=== PATIENT | male | born 1980 | race Caucasian/White ===

== ENCOUNTER 2023-04-20 14:59 | Outpatient (AMB) | payer OTHER, SELFPAY ==
--- NOTE | 2023-04-20 15:20 | MHC.PC.OV ---
Vital Signs 04/20/23 15:21 Height 5 ft 10 in Weight 505 lb BMI 72.5 BP 140/80 H Blood Pressure Location Lt brachial Position Sitting Pulse 101 H Pulse Source Pulse Oximeter Pulse Oximetry (%) 95 Oxygen Delivery Method Room Air Intake Visit Reasons: ADMISSIONS OFFICER/HTN/Asthma/Meds Intake Note: Patient is here as a new patient, would like prescription refills, he is concerned about jock itch. Allergies Penicillins Allergy (Mild, Verified 04/20/23 15:26) Hives Tobacco use date assessed: 04/20/23 Dental Screening Dental Screen Date: 04/20/23 Did you have a dental visit in the last 12 months?: Yes Did you have a dental problem in the last 6 months where you did not have access to dental care?: No Was dental information given to patient?: Patient has dentist HPI ADMISSIONS OFFICER/HTN/Asthma/Meds HPI Details New patient Prior PCP:?Dr Thompson at [facility] in [facility] Last office visit/CPE: August for [place] & Flu. August 2021 Acute issue(s): Jock itch x2 months. Erectile dysfunction - difficulty maintaining an erection. PMHx: Morbid obesity, Hypertension, Asthma SurgHx: None FHx: Father: HTN, paranoid schizophrenia. pGF: Dementia. pGM: DM, HTN. Mother: Asthma SocHx: Nonsmoker. EtOH 1-2 in a month. No drugs. PFSH Medical History (Updated 04/20/23 @ 16:01 by En Allen) Palpitations High blood pressure Asthma Surgical History (Updated 04/20/23 @ 15:32 by Ekaterina Royal CMA) No pertinent past surgical history Family History (Updated 04/20/23 @ 15:36 by Ekaterina Royal CMA) Father High blood pressure Paranoid schizophrenia Diabetes Mother Asthma Paternal Grandfather High blood pressure Paternal Grandmother Diabetes High blood pressure (Updated 04/20/23 @ 15:39 by Ekaterina Royal CMA) Household Members: Significant Other Housing: Apartment Are you a primary floor care technician to a significant other at home: No Do you presently have visiting nurse or other home services: No 75 years or older and lives alone: No Alcohol intake: current Patient Tobacco Use Status: Never used Tobacco e-Cigarette/Vaping Use: Never Used Special esther needs: No service: No Current occupational status: employed 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 Cognitive needs: No Hearing needs: No Vision needs: Yes (Patient wears glasses) Questionnaire PHQ-9 Over the last 2 weeks, how often have you been bothered by any of the following problems? 1. Little interest or pleasure in doing things: several days 2. Feeling down, depressed, or hopeless: several days 3. Trouble falling or staying asleep, or sleeping too much: several days 4. Feeling tired or having little energy: several days 5. Poor appetite or overeating: not at all 6. Feeling bad about yourself - or that you are a failure or have let yourself or your family down: several days 7. Trouble concentrating on things, such as reading the newspaper or watching television: not at all 8. Moving or speaking so slowly that other people could have noticed. Or the opposite - being so fidgety or restless that you have been moving around a lot more than usual: not at all 9. Thoughts that you would be better off or of hurting yourself in some way: not at all Total score: 5 Depression Screening Interpretation: Negative Depression Screening Done: Yes 08279 - PHQ-9 Billing: Yes Source: Developed by Drs. Kd Jarrett, Maude Colorado, Leo Baugh and colleagues, with an educational vandana from [employer]. Thrive Questionnaire Date Thrive assessed: 04/20/23 I am a: Patient What is your living situation today?: I have a steady place to live Within the past 12 months, did the food you bought not last and you didn't have the money to get more?: Never true Within the past 12 months, did you worry whether your food would run out before you got money to buy more?: Never true Do you have trouble paying for medicines?: No Do you have trouble getting transportation to medical appointments?: No Do you have trouble paying your heating and electricity bill?: No Do you have trouble taking care of your child, family member or friend?: No Do you have trouble with day-to-day activities such as bathing, preparing meals, shopping, managing finances, etc.?: No Are you currently unemployed and looking for a job?: No Are you interested in more education?: Yes AUDIT C Alcohol Use Questionnaire (AUDIT-C) 1. How often do you have a drink containing alcohol?: Monthly or less 2. How many drinks containing alcohol do you have on a typical day when you are drinking?: 1 or 2 3. How often do you have six or more drinks on one occasion?: Never Total Score: 1 PANFILO-7 AMB Questionnaire PANFILO-7 Date PANFILO - 7 assessed: 04/20/23 Feeling nervous, anxious, or on edge: 1 = Several days Not being able to stop or control worryin = Not at all Worrying too much about different things: 1 = Several days Trouble relaxin = Not at all Being so restless that it is hard to sit still: 0 = Not at all Becoming easily annoyed or irritable: 0 = Not at all Feeling afraid as if something awful might happen: 0 = Not at all Total PANFILO-7 score (0-4 normal; 5-9 mild; 10-14 moderate; 15-21 severe): 2 Source: Developed by Drs. Kd Jarrett, Maude Colorado, Leo Baugh and colleagues, with an educational vandana from [employer]. PANFILO-7 Assessment Billing PANFILO-7 Assessment Tool: PANFILO-7 Assessment 27395 ACT Questionnaire In the past 4 weeks, how much of the time did your asthma keep you from getting as much done at work, school or at home?: None of the time During the past 4 weeks, how often have you had shortness of breath?: Not at all During the past 4 weeks, how often did your asthma symptoms wake you up at night or earlier than usual in the morning?: Not at all During the past 4 weeks, how often have you had to use your rescue inhaler or nebulizer medication?: 2-3 times a week (Patient was fighting a cold/virus) How would you rate your asthma control during the past 4 weeks?: Completely controlled ACT Interpretation: Negative Score: 23 Physical exam (Primary Care) Vital Signs: Last Vital Signs Pulse 101 H 04/20/23 15:21 BP 140/80 H 04/20/23 15:21 Pulse Ox 95 04/20/23 15:21 Oxygen Delivery Method Room Air 04/20/23 15:21 BMI result Body Mass Index 72.5 Tobacco/Smoking Status: Tobacco use Status Tobacco use date assessed 04/20/23 04/20/23 15:31 Patient Tobacco Use Status Never used Tobacco 04/20/23 15:39 e-Cigarette/Vaping Use Never Used 04/20/23 15:39 PHQ-9: PHQ-9 Score PHQ-9: Total score 5 04/20/23 15:53 Depression Screening Interpretation: Negative Thrive Assessment: Date of Thrive Assessment Date Thrive assessed 04/20/23 04/20/23 15:47 Const Nutritional Appearance: obese morbidly obese Office Procedures Pulmonary Testing Pulmonary Testing Details: 450 1 500 2 500 3 500 best All charges added?: Additional procedure code (CPT) needed Assessment and Plan Assessment & Plan (1) Morbid obesity: Code(s): E66.01 - Morbid (severe) obesity due to excess calories Plan: Patient?says?he?may?be?interested?in?a?referral?to?weight?management?or?bariatrics?but?he?would?like?to?ensure?that?his?other?comorbidities?are?better?controlled?prior?to?this. Will?readdress?at?his?next?visit (2) Jock itch: Code(s): B35.6 - Tinea cruris Plan: Avoid?excess?moisture Can?take?fluconazole?oral tab Start?clotrimazole (3) High blood pressure: Code(s): I10 - Essential (primary) hypertension Plan: Blood?pressure?is?a?little?elevated?today?but?this?is?a?new?surrounding?for?him?and?he?has?been?getting?over?a?viral?illness. Continue?current?medication?regimen Will?follow-up?at?his?next?visit?adjust?medications?if?needed (4) Asthma: Code(s): J45.909 - Unspecified asthma, uncomplicated Plan: Fair?control?of?his?symptoms?but?he?no?longer?has?an?albuterol?inhaler?and?had?QVAR?in?the?past?as?well. Will?make?these?available?for?him.??He?can?use?as?needed?or?when?he?is?sick. (5) Erectile dysfunction: Code(s): N52.9 - Male erectile dysfunction, unspecified Plan: Complaint?of?erectile?dysfunction. Possibly?due?to?decrease?testosterone?or?increased?estrogen?due?to?weight. Possibly?due?to?other?comorbidities?of?weight Check?labs?including?testosterone?level We?can?discuss?a?trial?of?sildenafil?at?an?upcoming?visit May?need?referral?to?urology (6) Laboratory exam ordered as part of routine general medical examination: Code(s): Z00.00 - Encounter for general adult medical examination without abnormal findings Plan: Check?labs Orders: Orders Complete Blood Count Auto Diff Today Z00.00 - Encounter for general adult medical examination without abnormal findings Microalbumin, Random (w Creat) Today I10 - Essential (primary) hypertension UA and rflx microscopic Today Z00.00 - Encounter for general adult medical examination without abnormal findings Magnesium Today J45.909 - Unspecified asthma, uncomplicated Testosterone, Free/Total Today N52.9 - Male erectile dysfunction, unspecified Comprehensive [place]. Panel Fast Today Z00.00 - Encounter for general adult medical examination without abnormal findings Lipid Panel Today Z00.00 - Encounter for general adult medical examination without abnormal findings Prostate Specific Antigen Scr Today Z12.5 - Encounter for screening for malignant neoplasm of prostate TSH reflex Free T4 Today Z00.00 - Encounter for general adult medical examination without abnormal findings Vitamin B12 and Folate Today E53.8 - Deficiency of other specified B group vitamins Pulmonary Test/Procedure Today J45.909 - Unspecified asthma, uncomplicated Medications: New clotrimazole 1% 1 appl topical BID 2 weeks 60 grams 2RF metoprolol succinate ER one in the Am and 1.5 at night 50 mg PO DAILY 90 tabs 2RF 90 days hydrochlorothiazide 25 mg PO DAILY 90 tabs 2RF 90 days albuterol sulfate 90 mcg/actuation (ProAir HFA) 2 puffs inhalation Q4-6H 30 days PRN 8.5 grams 0RF shortness of breath or wheezing fluconazole 150 mg PO Q3D 2 tabs 0RF 2 doses beclomethasone dipropionate 40 mcg/actuation (Qvar RediHaler) 1 inh inhalation Q12H 30 days 10.6 grams 2RF escitalopram oxalate 10 mg PO DAILY 90 tabs 2RF 90 days Coding Level of Care Code New Pt Level 4 (70023) Diagnoses Morbid obesity E66.01 Jock itch B35.6 High blood pressure I10 Asthma J45.909 Erectile dysfunction N52.9 Laboratory exam ordered as part of routine general medical examination Z00.00 Additional Codes PANFILO-7 Assessment Billing - PANFILO-7 Assessment Tool: PANFILO-7 Assessment [id number] ([id number])
[2023-04-20 15:21] VITALS: BP 140/80; PULSE 101; O2SAT 95; BMI 72.5
== END 2023-04-20 16:20 | disposition home or self-care (01) ==
PROVIDERS: PCP Family Medicine; Visit Provider Family Medicine
DX: I10 Essential (primary) hypertension (principal); E66.01 Morbid (severe) obesity due to excess calories; Z68.45 Body mass index [BMI] 70 or greater, adult; B35.6 Tinea cruris; J45.909 Unspecified asthma, uncomplicated; N52.9 Male erectile dysfunction, unspecified; Z00.00 Encounter for general adult medical examination without abnormal findings
CPT/HCPCS: 99204

== ENCOUNTER 2023-06-22 10:55 | Outpatient (REF) | payer OTHER, SELFPAY ==
[2023-06-22 14:58] LABS: MANUAL DIFF FLAG NO
[2023-06-22 15:04] LABS: Basophils Absolute Auto 0.1 X10*3/uL (0.0-0.2); Basophils Percent Auto 0.8 % (0-2); Eosinophils Absolute Auto 0.2 X10*3/uL (0.0-0.4); Eosinophils Percent Auto 1.9 % (0-4); Hematocrit 45.4 % (42.0-52.0); Hemoglobin 13.7 g/dl (14.0-18.0); Imm Gran Abs Auto 0.04 X10*3/uL (0.00-0.03); Imm Gran Pct Auto 0.4 % (0.0-0.4); Lymphocytes Absolute Auto 2.6 X10*3/uL (1.2-4.9); Lymphocytes Percent Auto 25.2 % (20-40); Mean Corpuscular HGB Conc 30.2 g/dl (31.0-36.0); Mean Corpuscular Hemoglobin 24.4 pg (27.0-33.0); Mean Corpuscular Volume 80.9 fL (80.0-98.0); Mean Platelet Volume 10.6 fL (9.4-12.4); Monocytes Absolute Auto 0.4 X10*3/uL (0.1-1.2); Monocytes Percent Auto 3.9 % (2-11); Neutrophils Percent Auto 67.8 % (45-73); Platelet Count 401 X10*3/uL (160-400); Red Blood Count 5.61 X10*6/uL (4.60-5.80); Red Cell Distribution Width 14.3 % (11.0-16.0); White Blood Count 10.4 X10*3/uL (4.8-10.8)
[2023-06-22 15:06] LABS: Appearance Urine Clear; Color Urine Yellow; Glucose Urine UA Negative (Negative); Leukocyte Esterase Urine Negative (Negative); Nitrite Urine Negative (Negative); PH 5.5 (5.0-9.0); Urine Blood Negative (Negative); Urine Ketones Negative (Negative); Urine Protein Negative (Neg-Trace)
[2023-06-22 15:40] LABS: Creatinine Urine 165.94 mg/dL; Microalbum/Creatinine Ratio Ur 7.8 ug/mg cr (<30)
[2023-06-22 15:52] LABS: Alanine Aminotransferase 7 U/L (0-40); Albumin Level 3.7 g/dL (3.5-5.0); Alkaline Phosphatase 64 U/L (39-117); Anion Gap 14 (12-20); Aspartate Amino Transferase 12 U/L (5-37); Bilirubin Total 0.4 mg/dL (0.0-1.0); Blood Urea Nitrogen 14 mg/dL (9-16); Calcium 9.1 mg/dL (8.4-10.2); Carbon Dioxide 25 mmol/L (22-29); Chloride 102 mmol/L (96-108); Cholesterol 154 mg/dL (<200); Estimated Glomerular Filt Rate > 60; Glucose Fasting 93 mg/dL (60-99); HDL Cholesterol 41 mg/dL (>40); LDL Cholesterol Calculated 96 mg/dL (<100); Magnesium 2.2 mg/dL (1.6-2.6); Potassium 4.1 mmol/L (3.3-5.1); Sodium 137 mmol/L (135-145); Total Protein 8.1 g/dL (6.5-8.0); Triglycerides 87 mg/dL (<150)
[2023-06-22 16:00] LABS: TSH reflex Free T4 2.95 uIU/mL (0.32-4.0)
[2023-06-22 16:11] LABS: Folate 5.9 ng/mL (> or = 4.0); Prostate Specific Antigen Scr 0.28 ng/mL (<0.05-4.0); Vitamin B12 576 pg/mL (200-900)
[2023-06-30 01:48] LABS: Testosterone, Free 14.8 pg/mL (35.0-155.0); Testosterone, Total 85 ng/dL (250-1100)
== END 2023-06-22 10:56 | disposition home or self-care (01) ==
LOC: HO.WFDLDS 10:55
PROVIDERS: Visit Provider Family Medicine
DX: Z00.00 Encounter for general adult medical examination without abnormal findings (principal); Z12.5 Encounter for screening for malignant neoplasm of prostate; N52.9 Male erectile dysfunction, unspecified; I10 Essential (primary) hypertension; E53.8 Deficiency of other specified B group vitamins; J45.909 Unspecified asthma, uncomplicated
CPT/HCPCS: 36415; 80053; 80061; 81003; 82043; 82570; 82607; 82746; 83735; 84153; 84402; 84403; 84443; 85025

== ENCOUNTER 2023-06-26 10:48 | Outpatient (AMB) | payer OTHER, SELFPAY ==
[2023-06-26 11:25] VITALS: BP 130/78; PULSE 82; O2SAT 99; BMI 75.3
--- NOTE | 2023-06-26 11:25 | A.OFFPC_ITS ---
Vital Signs 06/26/23 11:25 Height 5 ft 10 in Weight 525 lb BMI 75.3 BP 130/78 Blood Pressure Location Lt brachial Position Sitting Pulse 82 Pulse Source Pulse Oximeter Pulse Oximetry (%) 99 Oxygen Delivery Method Room Air Intake Visit Reasons: CPE with f/u and health maintenance Intake Note: Patient is here for physical and to follow up on labs. Patient is feeling weak from change of Metoprolol. Allergies Penicillins Allergy (Mild, Verified 06/26/23 11:26) Hives Tobacco use date assessed: 06/26/23 HPI CPE with f/u and health maintenance HPI Details 43 y/o male presents for a CPE with f/u labs and health maintenance. Labs were drawn 06/22/23. Reviewed labs with pt. Triglycerides 87. TC 154. LDL 96. HDL 41. Blood pressure today 130/78, 82p. He checks his blood pressure in the morning which is generally in the 120-130s. He is on hydrochlorothiazide 25mg, metoprolol. He reports fatigue which has been improving. He notes he did get a home test for sleep apnea before but states this had been invasive and had been unable to complete this. Pt reports GERD about 2x a week which he uses tums for. [facility] Medical History (Updated 06/26/23 @ 11:52 by En Allen) Palpitations High blood pressure Asthma Surgical History (Updated 04/20/23 @ 15:32 by Ekaterina Royal CMA) No pertinent past surgical history Family History (Updated 04/20/23 @ 15:36 by Ekaterina Royal CMA) Father High blood pressure Paranoid schizophrenia Diabetes Mother Asthma Paternal Grandfather High blood pressure Paternal Grandmother Diabetes High blood pressure Social History (Updated 04/20/23 @ 15:39 by Ekaterina Royal CMA) Household Members: Significant Other Housing: Apartment Are you a primary neonatal intensive care nurse to a significant other at home: No Do you presently have visiting nurse or other home services: No 75 years or older and lives alone: No Alcohol intake: current Comment: on occasion Patient Tobacco Use Status: Never used Tobacco e-Cigarette/Vaping Use: Never Used Special esther needs: No service: No Current occupational status: employed 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 Cognitive needs: No Hearing needs: No Vision needs: Yes (Patient wears glasses) Questionnaire Thrive Questionnaire Date Thrive assessed: 04/20/23 PANFILO-7 AMB Questionnaire PANFILO-7 Date PANFILO - 7 assessed: 04/20/23 Source: Developed by Drs. Kd Jarrett, Maude [place], Leo Baugh and colleagues, with an educational vandana from [employer]. Review of Systems Const Denies chills, Denies fatigue, Denies fever(s), Denies headache(s) and Denies weakness Eyes Denies change in vision ENT Denies dizziness, Denies headache(s), Denies hearing loss, Denies nasal congestion, Denies sinus pain, Denies sinus pressure and Denies sore throat Card Denies chest pain, Denies lightheadedness, Denies dyspnea and Denies other (palpitations) Resp Denies cough, Denies dyspnea and Denies wheezing GI Denies abdominal pain, Denies melena, Denies hematochezia, Denies change in bowel habits, Denies dyspepsia and Denies nausea Denies hematuria and Denies dysuria Musc Denies abnormal gait, Denies myalgias, Denies arthralgias, Denies numbness and Denies tingling Skin/Breast Denies rash, Denies unusual bruising and Denies wounds Neuro Denies abnormal gait, Denies dizziness, Denies headache(s), Denies memory loss, Denies numbness, Denies Sensory deficit (Neuro), Denies tingling and Denies weakness Psych Denies anxiety, Denies depression and Denies memory loss Endo Denies cold intolerance, Denies fatigue, Denies heat intolerance, Denies polydipsia and Denies polyuria Phuc/Lymph Denies easy bleeding and Denies easy bruising Aller/Immun Denies wheezing Physical exam (Primary Care) Vital Signs: Last Vital Signs Pulse 82 06/26/23 11:25 BP 130/78 06/26/23 11:25 Pulse Ox 99 06/26/23 11:25 Oxygen Delivery Method Room Air 06/26/23 11:25 BMI result Body Mass Index 75.3 Tobacco/Smoking Status: Tobacco use Status Tobacco use date assessed 06/26/23 06/26/23 11:31 Patient Tobacco Use Status Never used Tobacco 06/26/23 11:26 e-Cigarette/Vaping Use Never Used 06/26/23 11:26 Thrive Assessment: Date of Thrive Assessment Date Thrive assessed 04/20/23 06/26/23 11:26 Const General: no acute distress, well developed, alert and awake Nutritional Appearance: obese morbidly obese Orientation/consciousness: patient oriented x3 HENMT Head: Yes normocephalic and Yes atraumatic Ears: hearing grossly normal bilaterally and TM's normal bilaterally General nose exam: Normal external nose present and Normal nares present Mouth: Normal oral and palatal mucosa present and moist mucous membranes Teeth and gingiva: dentition normal Throat: Yes posterior oropharynx normal Eyes General: appearance normal, both eyes and all related structures Pupils: Equal, round and reactive pupils present and Pupil accommodation reflex normal EOM: EOMs intact bilaterally Neck Neck: Yes normal visual inspection, Yes no lymphadenopathy and Yes trachea midline Thyroid: Thyroid normal Carotids: no bruits Lymphatic: no lymphadenopathy noted Chest Chest palpation & inspection: normal inspection of the chest Resp Effort & Inspection: normal respiratory effort Auscultation: clear to auscultation bilaterally Cardio Rate: regular rate Rhythm: regular rhythm Heart sounds: S1 normal heart sound present, S2 normal heart sound present, no gallops, no murmurs and no rubs Bruits: no abdominal aortic bruits and no carotid bruits GI Palpation (GI): No Abdominal aortic bruit present, Soft to palpation, nontender, No hepatosplenomegaly present and No Rebound tenderness present Auscultation: normal bowel sounds General: Yes no CVA tenderness Back/Spine/Pelvis Back: no CVA tenderness Cervical Spine: cervical ROM normal and No Cervical spine tenderness Thoracic/Lumbar Spine: thoraco-lumbar ROM normal, No pain with thoraco-lumbar ROM, No thoracic spinal tenderness and No lumbar spinal tenderness Skin Lesions: no lesions Rashes: no rashes Trauma: no lacerations or abrasions Wounds: no wounds Nails: normal Neuro General: patient oriented x3 Cranial nerves: Yes Equal, round and reactive pupils present Cognition (Neuro): normal cognition Gait exam (Neuro): Normal gait present Motor exam (neuro): 5/5 motor strength present throughout Sensory Exam: No Sensory deficit (Neuro) Deep tendon reflexes (DTR's): Right patellar reflex intensity grade: 2+ and Left patellar reflex intensity grade: 2+ Extrem General: Yes normal to inspection and No edema Psych Appearance: grossly normal Affect: normal affect Attitude: cooperative Thought process: Normal thought process present Assessment and Plan Assessment & Plan (1) Adult general medical exam: Code(s): Z00.00 - Encounter for general adult medical examination without abnormal findings Plan: 43-year-old?male?presents?for?complete?physical?exam (2) High blood pressure: Code(s): I10 - Essential (primary) hypertension Plan: Fairly?well?controlled?blood?pressure?during?the?day?though?patient?noted diastolic?elevations?in?the?morning. These?may?be?secondary?to?sleep?apnea?and?he?is?referred?to?Sleep?Medicine Continue?current?medication?regimen Also?patient?will?continue?working?on?weight?loss?and?I?am?referring?him?to?sabrinag ht?management/bariatric (3) GERD (gastroesophageal reflux disease): Code(s): K21.9 - Gastro-esophageal reflux disease without esophagitis Plan: Patient?is?getting?symptoms?a?few?times?a?week Discussed?lifestyle?changes Will?give?him?a?script?for?omeprazole (4) Morbid obesity: Code(s): E66.01 - Morbid (severe) obesity due to excess calories Plan: Morbid?obesity?with?BMI?greater?than?75 Patient?is?interested?in?bariatric?surgery-referral?made (5) Fatigue: Code(s): R53.83 - Other fatigue Plan: Lab?work?is?unremarkable?though?testosterone?level?is?pending. Likely?sleep?apnea?and?I?have?referred?him?to?Sleep?Medicine. We?can?follow-up?on?this?at?subsequent?visit (6) Screening for prostate cancer: Code(s): Z12.5 - Encounter for screening for malignant neoplasm of prostate Plan: PSA?was?within?normal?limits (7) Sleep apnea: Code(s): G47.30 - Sleep apnea, unspecified Plan: Referred?to?Sleep?Med (8) BMI 70 and over, adult: Code(s): Z68.45 - Body mass index [BMI] 70 or greater, adult Plan: As?above,?referred?to?bariatric?surgery (9) Erectile dysfunction: Code(s): N52.9 - Male erectile dysfunction, unspecified Plan: Testosterone?level?pending We?can?follow-up?on?testosterone?levels?and?this?problem?at?his?next?visit. Can?trial?sildenafil?and?may?need?a?referral?to?urology. Orders: Referrals Sleep Medicine Referral G47.30 - Sleep apnea, unspecified Bariatric Surgery Referral E66.01 - Morbid (severe) obesity due to excess calories, Z68.45 - Body mass index [BMI] 70 or greater, adult Medications: New omeprazole 40 mg PO DAILY 30 caps 2RF 30 days Coding Level of Care Code Est Pt Level 3 (81174) Est Pt Prev Care 40-64y(07979) Diagnoses Adult general medical exam Z00.00 High blood pressure I10 GERD (gastroesophageal reflux disease) K21.9 Morbid obesity E66.01 Fatigue R53.83 Screening for prostate cancer Z12.5 Sleep apnea G47.30 BMI 70 and over, adult Z68.45 Erectile dysfunction N52.9
== END 2023-06-26 11:55 | disposition home or self-care (01) ==
PROVIDERS: PCP Family Medicine; Visit Provider Family Medicine
DX: Z00.00 Encounter for general adult medical examination without abnormal findings (principal); E66.01 Morbid (severe) obesity due to excess calories; Z68.45 Body mass index [BMI] 70 or greater, adult; I10 Essential (primary) hypertension; N52.9 Male erectile dysfunction, unspecified; K21.9 Gastro-esophageal reflux disease without esophagitis; R53.83 Other fatigue; G47.30 Sleep apnea, unspecified
CPT/HCPCS: 99213; 99396

== ENCOUNTER 2023-08-14 11:38 | Outpatient (AMB) | payer OTHER, SELFPAY ==
--- NOTE | 2023-08-14 12:04 | A.OFFPC_ITS ---
Vital Signs 08/14/23 12:09 Height 5 ft 10 in Weight 520 lb BMI 74.6 BP 118/70 Blood Pressure Location Lt brachial Position Sitting Pulse 88 Pulse Source Pulse Oximeter Pulse Oximetry (%) 99 Oxygen Delivery Method Room Air Intake Visit Reasons: f/u fatigue, sleep apnea Intake Note: Patient is here to follow up on fatigue, and sleep apnea. Allergies Penicillins Allergy (Mild, Verified 08/14/23 12:12) Hives Tobacco use date assessed: 08/14/23 Dental Screening Dental Screen Date: 08/14/23 Did you have a dental visit in the last 12 months?: Yes Did you have a dental problem in the last 6 months where you did not have access to dental care?: No Was dental information given to patient?: Patient has dentist HPI f/u fatigue, sleep apnea HPI Details 43 y/o male presents to f/u fatigue, sle ep apnea, chronic conditions. Blood pressure today 118/70. He is on HCTZ 25mg, metoprolol. Testosterone level came back significantly low. Has an appt. with urology scheduled for this. He has an appt. in September with Sleep Medicine. [facility], [facility] Medical History Palpitations High blood pressure Asthma Surgical History No pertinent past surgical history Family History Father High blood pressure Paranoid schizophrenia Diabetes Mother Asthma Paternal Grandfather High blood pressure Paternal Grandmother Diabetes High blood pressure Social History Household Members: Significant Other Housing: Apartment Are you a primary respiratory care specialist to a significant other at home: No Do you presently have visiting nurse or other home services: No 75 years or older and lives alone: No Alcohol intake: current Comment: on occasion Patient Tobacco Use Status: Never used Tobacco e-Cigarette/Vaping Use: Never Used Special esther needs: No service: No Current occupational status: employed 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 Cognitive needs: No Hearing needs: No Vision needs: Yes (Patient wears glasses) Questionnaire PHQ-9 Over the last 2 weeks, how often have you been bothered by any of the following problems? 1. Little interest or pleasure in doing things: not at all 2. Feeling down, depressed, or hopeless: several days 3. Trouble falling or staying asleep, or sleeping too much: not at all 4. Feeling tired or having little energy: not at all 5. Poor appetite or overeating: not at all 6. Feeling bad about yourself - or that you are a failure or have let yourself or your family down: several days 7. Trouble concentrating on things, such as reading the newspaper or watching television: not at all 8. Moving or speaking so slowly that other people could have noticed. Or the opposite - being so fidgety or restless that you have been moving around a lot more than usual: not at all 9. Thoughts that you would be better off or of hurting yourself in some way: not at all Total score: 2 Source: Developed by Drs. Kd Jarrett, Maude Colorado, Leo Baugh and colleagues, with an educational vandana from [employer]. Thrive Questionnaire Date Thrive assessed: 08/14/23 I am a: Patient What is your living situation today?: I have a steady place to live Within the past 12 months, did the food you bought not last and you didn't have the money to get more?: Never true Within the past 12 months, did you worry whether your food would run out before you got money to buy more?: Never true Do you have trouble paying for medicines?: No Do you have trouble getting transportation to medical appointments?: No Do you have trouble paying your heating and electricity bill?: No Do you have trouble taking care of your child, family member or friend?: No Do you have trouble with day-to-day activities such as bathing, preparing meals, shopping, managing finances, etc.?: No Are you currently unemployed and looking for a job?: No Are you interested in more education?: No THRIVE Score: 0 AUDIT C Alcohol Use Questionnaire (AUDIT-C) 1. How often do you have a drink containing alcohol?: Monthly or less 2. How many drinks containing alcohol do you have on a typical day when you are drinking?: 1 or 2 3. How often do you have six or more drinks on one occasion?: Never Total Score: 1 PANFILO-7 AMB Questionnaire PANFILO-7 Date PANFILO - 7 assessed: 08/14/23 Feeling nervous, anxious, or on edge: 0 = Not at all Not being able to stop or control worryin = Not at all Worrying too much about different things: 1 = Several days Trouble relaxin = Not at all Being so restless that it is hard to sit still: 0 = Not at all Becoming easily annoyed or irritable: 0 = Not at all Feeling afraid as if something awful might happen: 0 = Not at all Total PANFILO-7 score (0-4 normal; 5-9 mild; 10-14 moderate; 15-21 severe): 1 Source: Developed by Drs. Kd Jarrett, Maude Colorado, Leo Baugh and colleagues, with an educational vandana from [employer]. Review of Systems Const Denies chills, Denies fatigue, Denies fever(s), Denies headache(s) and Denies weakness ENT Denies dizziness and Denies headache(s) Card Denies dyspnea Resp Denies cough, Denies dyspnea, Denies wheezing and Denies other (shortness of breath) Musc Denies numbness and Denies tingling Neuro Denies dizziness, Denies headache(s), Denies numbness, Denies tingling and Denies weakness Psych Denies anxiety and Denies depression Endo Denies fatigue Aller/Immun Denies wheezing Physical exam (Primary Care) Vital Signs: Last Vital Signs Pulse 88 08/14/23 12:09 BP 118/70 08/14/23 12:09 Pulse Ox 99 08/14/23 12:09 Oxygen Delivery Method Room Air 08/14/23 12:09 BMI result Body Mass Index 74.6 Tobacco/Smoking Status: Tobacco use Status Tobacco use date assessed 08/14/23 08/14/23 12:13 Patient Tobacco Use Status Never used Tobacco 08/14/23 12:05 e-Cigarette/Vaping Use Never Used 08/14/23 12:05 PHQ-9: PHQ-9 Score PHQ-9: Total score 2 08/14/23 13:06 Thrive Assessment: Date of Thrive Assessment Date Thrive assessed 08/14/23 08/14/23 12:22 Const General: well developed; No acute distress Nutritional Appearance: obese morbidly obese Orientation/consciousness: patient oriented x3 HENIA Head: Yes normocephalic and Yes atraumatic Eyes General: appearance normal, both eyes and all related structures Pupils: Equal, round and reactive pupils present EOM: EOMs intact bilaterally Resp Effort & Inspection: normal respiratory effort Auscultation: clear to auscultation bilaterally Cardio Rate: regular rate Rhythm: regular rhythm Heart sounds: S1 normal heart sound present, S2 normal heart sound present, no gallops, no murmurs and no rubs Neuro General: patient oriented x3 and gait normal Cranial nerves: Yes Equal, round and reactive pupils present Psych Affect: normal affect Assessment and Plan Assessment & Plan (1) High blood pressure: Code(s): I10 - Essential (primary) hypertension Plan: Well?controlled.??Goal?is?less?than?140/90 Continue?current?medication (2) Hypogonadism in male: Code(s): E29.1 - Testicular hypofunction Plan: Low?testosterone?level?and?patient?notes?fatigue,?decreased?libido?and?ED He?has?an?appointment?with?Urology (3) Fatigue: Code(s): R53.83 - Other fatigue Plan: May?be?secondary?to?testosterone?levels?and?or?sleep?apnea Has?appointment?with?Urology?to?discuss?low?testosterone?levels. Has?an?appointment?with?sleep?medicine?to?evaluate?and?treat?sleep?apnea He?can?call?or?return?to?office?if?correc tion?of?the?above?is?not?solving?fatigue (4) Erectile dysfunction: Code(s): N52.9 - Male erectile dysfunction, unspecified Plan: As?above Orders: Referrals Endocrinology Referral E29.1 - Testicular hypofunction Coding Level of Care Code Est Pt Level 4 (72934) Diagnoses High blood pressure I10 Hypogonadism in male E29.1 Fatigue R53.83 Erectile dysfunction N52.9
[2023-08-14 12:09] VITALS: BP 118/70; PULSE 88; O2SAT 99; BMI 74.6
== END 2023-08-14 13:18 | disposition home or self-care (01) ==
PROVIDERS: PCP Family Medicine; Visit Provider Family Medicine
DX: I10 Essential (primary) hypertension (principal); E29.1 Testicular hypofunction; R53.83 Other fatigue; N52.9 Male erectile dysfunction, unspecified
CPT/HCPCS: 99214

== ENCOUNTER 2023-08-31 14:45 | Outpatient (AMB) | payer OTHER, SELFPAY ==
--- NOTE | 2023-08-31 15:24 | A.OFFVIS_ITS ---
Intake Visit Reasons: hypogonadism and ED Intake Note: NEW Patient presents today to established treatment for: Hypogonadism and Erectile Dysfunction Meds- None Allergies to Antibiotic- Penicillins Blood Thinner- None Market Research Lead Required: No Accompanied by: Self / Same As Patient Allergies Penicillins Allergy (Mild, Verified 08/14/23 12:12) Hives HPI Comments Details: 08/31/23--Quinton is a 43 year old male here for evaluation for hypogonadism. He complains of erectile concerns. He denies urinary symptoms. Review of labs 06/22/23--PSA - 0.28, TT-85, FT-14.8 Plan- Viagra prn, Repeat Testosterone levels PFSH Medical History Palpitations High blood pressure Asthma Surgical History No pertinent past surgical history Family History Father High blood pressure Paranoid schizophrenia Diabetes Mother Asthma Paternal Grandfather High blood pressure Paternal Grandmother Diabetes High blood pressure Social History Household Members: Significant Other Housing: Apartment Are you a primary md do resident urgent care to a significant other at home: No Do you presently have visiting nurse or other home services: No 75 years or older and lives alone: No Alcohol intake: current Comment: on occasion Patient Tobacco Use Status: Never used Tobacco e-Cigarette/Vaping Use: Never Used Special esther needs: No service: No Current occupational status: employed 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 Cognitive needs: No Hearing needs: No Vision needs: Yes (Patient wears glasses) Review of Systems Const All systems reviewed & are unremarkable except as noted in HPI and below Reports no additional complaints Eyes Reports no additional complaints ENT Reports no additional complaints Card Reports no additional complaints Resp Reports no additional complaints GI Reports no additional complaints Reports as per HPI Musc Reports no additional complaints Skin/Breast Reports system reviewed and no additional complaints, except as documented Neuro Reports no additional complaints Psych Reports no additional complaints Endo Reports no additional complaints Phuc/Lymph Reports no additional complaints Aller/Immun Reports no additional complaints Physical Exam Const General: healthy appearing, no acute distress and well developed Orientation/consciousness: patient oriented x3 HEENT Head: Yes normocephalic and Yes atraumatic Eyes Conjunctivae: conjunctivae normal Neck Neck: Yes normal visual inspection Chest Chest palpation & inspection: normal inspection of the chest Resp Effort & Inspection: normal respiratory effort Cardio Rate: regular rate GI Inspection: Yes normal to inspection Skin General skin exam: no rashes or lesions noted Neuro General: patient oriented x3 Extrem General: No pedal edema Psych Appearance: grossly normal Affect: normal affect Results AMB Urinalysis, Automated UA Leukoctes 0 Lori/uL Last Edit by [facility] on 08/31/23 15 :46 UA Nitrite Negative Last Edit by [facility] on 08/31/23 15: 46 UA Urobilinogen 0.2 mg/dL Last Edit by [facility], [facility] on 4 15:46 UA Protein 0 mg/dL Last Edit by [facility] on 08/31/23 15:46 UA pH 6.0 Last Edit by [facility] on 08/31/23 15:46 UA Blood 0 Ariel/uL Last Edit by [facility] on 08/31/23 15:46 UA Specific Filley 1.010 Last Edit by [facility] on 15:46 UA Ketone Negative Last Edit by [facility] on 08/31/23 15:4 6 UA Bilirubin 0 mg/dL Last Edit by [facility] on 08/31/23 15: 46 UA Glucose 0 mg/dL Last Edit by [facility] on 08/31/23 15:46 Results Reviewed Results Reviewed: Laboratory Last Values Urine pH (Auto) 6.0 08/31/23 15:43 Specific Filley (Auto) 1.010 08/31/23 15:43 Urine Protein (Auto) 0 mg/dL 08/31/23 15:43 Glucose (UA)(Auto) 0 mg/dL 08/31/23 15:43 Urine Ketones (Auto) Negative 08/31/23 15:43 Urine Blood (Auto) 0 Ariel/uL 08/31/23 15:43 Urine Nitrite (Auto) Negative 08/31/23 15:43 Urine Bilirubin (Auto) 0 mg/dL 08/31/23 15:43 Urine Urobilinogen (Auto) 0.2 mg/dL 08/31/23 15:43 Leukocyte Esterase (Auto) 0 Lori/uL 08/31/23 15:43 06/22/23-[address]: ORDERED: PSASCR, B12FOL Test Result Flag Reference PSA, Tot Scr 0.28 <0.05-4.0 ng/mL 06/22/23-[address]: ORDERED: Testost Fr & T Test Result Flag Reference Testost, Tot 85 L 250-1100 ng/dL For additional information, please refer to [email or web address].[email or web address]/faq/ [email or web address] (This link is being provided for informational/ educational purposes only.) This test was developed and its analytical performance characteristics have been determined by [facility] [place], [place]. It has not been cleared or approved by the U.S. Food and Drug Administration. This assay has been validated pursuant to the CLIA regulations and is used for clinical purposes. Testost, Free 14.8 L 35.0-155.0 pg/mL Assessment & Plan Assessment & Plan (1) Hypogonadism in male: Code(s): E29.1 - Testicular hypofunction Category: Medical (2) Erectile dysfunction: Code(s): N52.9 - Male erectile dysfunction, unspecified Category: Medical Plan Repeat Labs, Viagra prn Orders: Orders AMB Urinalysis Automated 08/31/23 R33.9 - Retention of urine, unspecified Medications: New sildenafil (Viagra) [id number] [facility] [id number] Member [id number] 30 minutes to 4 hours before activity 100 mg PO DAILY PRN 30 tabs 2RF sexual activity Patient Instructions: The patient had an opportunity to ask questions regarding treatment plan. The patient expressed understanding and agreement with the above treatment plan. The patient is aware they should contact our office by phone for worsening of their current condition or the appearance of new symptoms. Compliance is encouraged with any medications and followup testing that is ordered. It is a privilege to be allowed the opportunity to participate in the urologic care of your patient. If you have any questions or concerns regarding treatment for the above conditions please do not hesitate to contact me. The office telephone contact is [phone]. This note is constructed in part using voice recognition software. While every effort has been made to ensure accuracy digital project coordinator errors may have been included. Yours sincerely, Sherrie Conley MD Coding Level of Care Code New Pt Level 3 (11855) Diagnoses Hypogonadism in male E29.1 Erectile dysfunction N52.9
== END 2023-08-31 16:14 | disposition home or self-care (01) ==
PROVIDERS: PCP Family Medicine; Visit Provider Urology
DX: E29.1 Testicular hypofunction (principal); N52.9 Male erectile dysfunction, unspecified
CPT/HCPCS: 99203

== ENCOUNTER → 2023-08-31 14:45 | Outpatient (BNVA) | payer OTHER, SELFPAY | PROVIDERS: PCP Family Medicine; Visit Provider Urology | DX: E29.1 Testicular hypofunction (principal); N52.9 Male erectile dysfunction, unspecified; R33.9 Retention of urine, unspecified | CPT/HCPCS: 81003 ==

== ENCOUNTER 2023-10-13 13:50 | Outpatient (AMB) | payer OTHER, SELFPAY ==
--- NOTE | 2023-10-13 13:54 | A.OFFVIS_ITS ---
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 Did a In Home Sleep study in 2019 at [facility]. Would like rule out sleep apnea. Allergies Penicillins Allergy (Mild, Verified 10/13/23 14:03) Hives Medication List - Last Reconciled 10/13/23 by NIMESH Oneill albuterol sulfate 90 mcg/actuation (ProAir HFA) 2 puffs inhalation Q4-6H PRN 30 days escitalopram oxalate 10 mg PO DAILY 90 days fexofenadine (Cristiana Allergy) 180 mg PO DAILY hydrochlorothiazide 25 mg PO DAILY 90 days magnesium chloride 64 mg PO DAILY metoprolol succinate ER 1 tab (100mg) AM and 0.5 tabs (50mg) PM. 90 days omeprazole 40 mg PO DAILY 30 days sildenafil (Viagra) 100 mg PO DAILY PRN HPI Comments Details: 43-yr-old male presents for new in-person patient visit for sleep consultation. Pt reports his PCP has asked him to have sleep evaluated as part of his weight management work-up. Pt reports he had a HST in 2019 which was inconclusive, however pt states he did not sleep well during the study. His father had sleep apnea, his sister snores- but does not have sleep apnea. Sleep questionnaire: Have you ever been diagnosed with a sleep disorder? No Have you ever had a sleep study in the past? Yes- inconclusive Have you ever been treated for a sleep disorder? No Do you take medications for a sleep disorder? Occasionally may use CBD for sleep if neighbors are loud- as he is generally photophobic/phonophobic. Do you snore? Yes Do you wake up gasping at night? No Do you have episodes of apneas? No If yes, are they witnessed? No Do you have episodes of nocturnal chest pain or dyspnea? No Do you have difficulty initiating sleep? Not usually Do you have difficulty maintaining sleep? Not usually- but wakes up 1-2 x's per night to void. Do you wake up tired? Not always Do you have headaches upon awakening? No Do you wake up with dry mouth or throat? Sometimes Do you have GERD? Was having reflux, but better since starting prilosec. Do you have daytime tiredness or fatigue? Some. Do you have nocturnal leg cramps? No Do you have symptoms of restless legs? No Do you act out your dreams? Talks in his sleep Do you have dreams? Has had vivid dreams his whole life. No sleep sleep paralysis. Sleep hygiene questionnaire: What is your usual sleep routine? Usual bedtime is at 12-1am; Usual wake-up time is at 10am- typically 8.5-9hrs. Do you take naps? Sometimes around 6-7pm , for < 1 hr Is your sleep environment cool, dark, and quiet? Yes. Uses an eye mask. Do you exercise? States he should be doing more. Do you take caffeine or other stimulants? Coffee Lg ice coffee in am. Do you use electronics in bed? May watch phone in bed before going to bed. What is your work schedule? Works from 10pm-6pm- works from home as a [employer]. Hypersomnolence questionnaire: Do you easily fall asleep when inactive? Sometimes Have you ever had episodes of sudden weakness? None Have you ever had episodes of sudden weakness associated with strong emotions? None PFSH Medical History Palpitations High blood pressure Asthma Surgical History No pertinent past surgical history Family History Father High blood pressure Paranoid schizophrenia Diabetes Mother Asthma Paternal Grandfather High blood pressure Paternal Grandmother Diabetes High blood pressure Social History Household Members: Significant Other Housing: Apartment Are you a primary hemodialysis patient care specialist to a significant other at home: No Do you presently have visiting nurse or other home services: No 75 years or older and lives alone: No Alcohol intake: current Comment: on occasion Patient Tobacco Use Status: Never used Tobacco e-Cigarette/Vaping Use: Never Used Special esther needs: No service: No Current occupational status: employed 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 Cognitive needs: No Hearing needs: No Vision needs: Yes (Patient wears glasses) Review of Systems Const All systems reviewed & are unremarkable except as noted in HPI and below Physical Exam Vital Signs: Last Vital Signs Pulse 87 10/13/23 14:06 BP 115/70 10/13/23 14:06 Pulse Ox 97 10/13/23 14:06 Oxygen Delivery Method Room Air 10/13/23 14:06 BMI result Body Mass Index 78.2 Const General: no acute distress Orientation/consciousness: patient oriented x3 HEENT Other: Mallampati stage IV. Resp Effort & Inspection: able to speak in complete sentences Neuro General: patient oriented x3 Psych Mental Status: mental status grossly normal Speech and movement: Clear speech present Attitude: cooperative Telehealth Telehealth Location of provider rendering services: practice address Location of patient: address on file Patient Identification confirmed using: Name, : Yes Telehealth method: voice only Patient verbally consented to treatment: Yes Patient verbally consented to billing insurance company: Yes Patient informed of any privacy concerns related to visit: Yes Assessment & Plan Assessment & Plan (1) Fatigue: Code(s): R53.83 - Other fatigue Category: Medical (2) Snoring: Code(s): R06.83 - Snoring Category: Medical (3) Sleep difficulties: Code(s): G47.9 - Sleep disorder, unspecified Category: Medical (4) BMI 70 and over, adult: Code(s): Z68.45 - Body mass index [BMI] 70 or greater, adult Category: Medical Plan Pt is advised to undergo in-lab PSG w/ ET CO2 to assess for sleep apnea. Information shared on strategies to minimize noise and light sensitivity. Case discussed w/ Dr Mary Mendenhall. Orders: Orders RT PSG in-lab sleep study Today G47.9 - Sleep disorder, unspecified, R06.83 - Snoring, R53.83 - Other fatigue, Z68.45 - Body mass index [BMI] 70 or greater, adult Coding Level of Care Code New Pt Level 3 (35691) Diagnoses Fatigue R53.83 Snoring R06.83 Sleep difficulties G47.9 BMI 70 and over, adult Z68.45
[2023-10-13 14:06] VITALS: BP 115/70; PULSE 87; O2SAT 97; BMI 78.2
== END 2023-10-13 14:56 | disposition home or self-care (01) ==
PROVIDERS: PCP Family Medicine; Visit Provider Nurse Practitioner Family
DX: R53.83 Other fatigue (principal); R06.83 Snoring; G47.9 Sleep disorder, unspecified; Z68.45 Body mass index [BMI] 70 or greater, adult
CPT/HCPCS: 99203

== ENCOUNTER → 2023-10-13 13:50 | Outpatient (BNVA) | payer OTHER, SELFPAY | PROVIDERS: PCP Family Medicine; Visit Provider Nurse Practitioner Family ==

== ENCOUNTER 2023-10-28 10:54 | Outpatient (REF) | payer OTHER, SELFPAY ==
[2023-10-28 15:32] LABS: Glucose Fasting 84 mg/dL (60-99)
[2023-10-29 13:52] LABS: Prolactin 10.2 ng/mL (2.0-18.0)
[2023-11-04 15:27] LABS: Testosterone, Total 62 ng/dL (250-1100)
== END 2023-10-28 10:55 | disposition home or self-care (01) ==
LOC: HO.WFDLDS 10:54
PROVIDERS: Visit Provider Urology
DX: E29.1 Testicular hypofunction (principal)
CPT/HCPCS: 36415; 82947; 83001; 83002; 84146; 84402; 84403

== ENCOUNTER → 2023-12-04 01:20 | Outpatient (BNV) | payer OTHER, SELFPAY | PROVIDERS: Visit Provider Internal Medicine | DX: R06.83 Snoring (principal); G47.9 Sleep disorder, unspecified; R53.83 Other fatigue; Z68.45 Body mass index [BMI] 70 or greater, adult | CPT/HCPCS: 95810 ==

== ENCOUNTER → 2023-12-04 21:57 | Outpatient (REF) | payer OTHER, SELFPAY | LOC: HO.SL 21:57 | PROVIDERS: Visit Provider Nurse Practitioner Family | DX: G47.9 Sleep disorder, unspecified (principal); R53.83 Other fatigue | CPT/HCPCS: 95810 ==

== ENCOUNTER → 2024-04-08 20:30 | Outpatient (REF) | payer OTHER, SELFPAY | LOC: HO.SL 20:30 | PROVIDERS: PCP Family Medicine; Visit Provider Nurse Practitioner Family | DX: G47.30 Sleep apnea, unspecified (principal); Z68.45 Body mass index [BMI] 70 or greater, adult | CPT/HCPCS: 95811 ==

== ENCOUNTER 2024-05-03 13:53 | Outpatient (AMB) | payer OTHER, SELFPAY ==
[2024-05-03 14:21] VITALS: BP 130/84; PULSE 89; O2SAT 99; BMI 81.3
--- NOTE | 2024-05-03 14:21 | MHC.OFFVIS ---
Vital Signs 05/03/24 14:21 Height 5 ft 10 in Weight 567 lb BMI 81.3 BP 130/84 Blood Pressure Location Rt radial Position Sitting Pulse 89 Pulse Source Pulse Oximeter Pulse Oximetry (%) 99 Oxygen Delivery Method Room Air Intake Visit Reasons: 7 month F/U Human Capital Consultant Required: No Accompanied by: Self / Same As Patient Allergies Penicillins Allergy (Mild, Verified 05/03/24 14:24) Hives Medication List - Last Reconciled 05/03/24 by NIMESH Oneill albuterol sulfate 90 mcg/actuation (ProAir HFA) 2 puffs inhalation Q4-6H PRN 30 days escitalopram oxalate 10 mg PO DAILY 90 days fexofenadine (Cristiana Allergy) 180 mg PO DAILY hydrochlorothiazide 25 mg PO DAILY 90 days magnesium chloride 64 mg PO DAILY metoprolol succinate ER 1 tab (100mg) AM and 0.5 tabs (50mg) PM. 90 days omeprazole 40 mg PO DAILY 30 days sildenafil (Viagra) 100 mg PO DAILY PRN trazodone 50 - 100 mg (1 - 2 x 50 mg) PO BEDTIME PRN 1 day HPI Comments Details: 43-yr-old male presents for new in-person patient visit for sleep consultation. Pt underwent in-lab sleep study which showed mild ZOE w/ hypoxemia and PLMS- decreased sleep efficiency, AHI 11.4 per hour, snoring for 5% of sleep study time, average SpO2 91% with O2 jerrell 80%, SpO2 under 88% for 11 minutes, average ET CO2 42-43 normal. Periodic limb movements of sleep 39 per hour with periodic limb movements sleep arousal index 11 per hour. Thus, pt then underwent in-lab PAP titration study, which showed improved sleep efficiency the patient did take a sleep aid prior to the study, best optimization of sleep apnea and nocturnal hypoxemia on BiPAP 16/10 cmH2O, however average SpO2 was 90% with O2 jerrell 85%, and SpO2 under 80% for 5 minutes of sleep study time. Pt is agreeable to try BiPAP tx at home. He does endorse snoring, sleep talking. In regards to hypoxemia, Patient does endorse asthma, he is followed by an day camp unit leader had allergy and immunology of [place]. In regards to PLMS, patient reports he sometimes may have BLE soreness if he is more active during the day, but no usual leg cramps or RLS s/s. Generally he is able to say pretty still. He plans to f/u w/ PCP regarding weight loss referral. 10/13/23, Initial HPI: Pt reports his PCP has asked him to have sleep evaluated as part of his weight management work-up. Pt reports he had a HST in 2019 which was inconclusive, however pt states he did not sleep well during the study. His father had sleep apnea, his sister snores- but does not have sleep apnea. Sleep questionnaire: Have you ever been diagnosed with a sleep disorder? No Have you ever had a sleep study in the past? Yes- inconclusive Have you ever been treated for a sleep disorder? No Do you take medications for a sleep disorder? Occasionally may use CBD for sleep if neighbors are loud- as he is generally photophobic/phonophobic. Do you snore? Yes Do you wake up gasping at night? No Do you have episodes of apneas? No If yes, are they witnessed? No Do you have episodes of nocturnal chest pain or dyspnea? No Do you have difficulty initiating sleep? Not usually Do you have difficulty maintaining sleep? Not usually- but wakes up 1-2 x's per night to void. Do you wake up tired? Not always Do you have headaches upon awakening? No Do you wake up with dry mouth or throat? Sometimes Do you have GERD? Was having reflux, but better since starting prilosec. Do you have daytime tiredness or fatigue? Some. Do you have nocturnal leg cramps? No Do you have symptoms of restless legs? No Do you act out your dreams? Talks in his sleep Do you have dreams? Has had vivid dreams his whole life. No sleep sleep paralysis. Sleep hygiene questionnaire: What is your usual sleep routine? Usual bedtime is at 12-1am; Usual wake-up time is at 10am- typically 8.5-9hrs. Do you take naps? Sometimes around 6-7pm , for < 1 hr Is your sleep environment cool, dark, and quiet? Yes. Uses an eye mask. Do you exercise? States he should be doing more. Do you take caffeine or other stimulants? Coffee Lg ice coffee in am. Do you use electronics in bed? May watch phone in bed before going to bed. What is your work schedule? Works from 10pm-6pm- works from home as a business [employer]. Hypersomnolence questionnaire: Do you easily fall asleep when inactive? Sometimes Have you ever had episodes of sudden weakness? None Have you ever had episodes of sudden weakness associated with strong emotions? None PFSH Medical History Palpitations High blood pressure Asthma Surgical History No pertinent past surgical history Family History Father High blood pressure Paranoid schizophrenia Diabetes Mother Asthma Paternal Grandfather High blood pressure Paternal Grandmother Diabetes High blood pressure Social History Household Members: Significant Other Housing: Apartment Are you a primary healthcare administrator to a significant other at home: No Do you presently have visiting nurse or other home services: No 75 years or older and lives alone: No Alcohol intake: current Comment: on occasion Patient Tobacco Use Status: Never used Tobacco e-Cigarette/Vaping Use: Never Used Special esther needs: No service: No Current occupational status: employed 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 Cognitive needs: No Hearing needs: No Vision needs: Yes (Patient wears glasses) Physical Exam Vital Signs: Last Vital Signs Pulse 89 05/03/24 14:21 BP 130/84 05/03/24 14:21 Pulse Ox 99 05/03/24 14:21 Oxygen Delivery Method Room Air 05/03/24 14:21 BMI result Body Mass Index 81.3 Const General: no acute distress Orientation/consciousness: patient oriented x3 Resp Effort & Inspection: able to speak in complete sentences Neuro General: patient oriented x3 Psych Mental Status: mental status grossly normal Speech and movement: Clear speech present Attitude: cooperative Assessment & Plan Assessment & Plan (1) Mild obstructive sleep apnea: Comment: AHI 11.4 per hour, snoring for 5% of sleep study time, average SpO2 91% with O2 jerrell 80%, SpO2 under 88% for 11 minutes, average ET CO2 42-43 normal. Periodic limb movements of sleep 39 per hour with periodic limb movements sleep arousal index 11 per hour. Code(s): G47.33 - Obstructive sleep apnea (adult) (pediatric) Category: Medical (2) Nocturnal hypoxemia: Code(s): G47.34 - Idiopathic sleep related nonobstructive alveolar hypoventilation Category: Medical (3) Periodic limb movements of sleep: Code(s): G47.61 - Periodic limb movement disorder Category: Medical Plan Reviewed in-lab sleep study and follow-up Pap titration study. Patient advised to start BiPAP 16/10 cm H2O nightly times at least 4 hours. After patient has adjusted to using BiPAP therapy, patient advised to undergo nocturnal pulse oximetry reading x1 night while on BiPAP 16/10 cm H2O in room air- to determine efficacy of BiPAP in resolving nocturnal hypoxemia. Sleep study report shared with patient, he will share these with his day camp unit leader. Concur with establishing care with weight management clinic, as even a 10% weight loss may reduce his severity of sleep apnea. Will check labs for common etiologies of periodic limb movements of sleep, as these may also be affecting his sleep quality. Will follow-up upon review of above and patient to follow-up in clinic in 3-4 months or sooner prn. Orders: Orders Complete Blood Count Auto Diff Today D64.9 - Anemia, unspecified, E66.01 - Morbid (severe) obesity due to excess calories, R53.83 - Other fatigue Ferritin Today D64.9 - Anemia, unspecified, E66.01 - Morbid (severe) obesity due to excess calories, R53.83 - Other fatigue Methylmalonic Acid Today D64.9 - Anemia, unspecified, E66.01 - Morbid (severe) obesity due to excess calories, R53.83 - Other fatigue Protein, 24 Hr Urine Group Today D64.9 - Anemia, unspecified, E66.01 - Morbid (severe) obesity due to excess calories, R53.83 - Other fatigue IRON PROFILE Today D64.9 - Anemia, unspecified, E66.01 - Morbid (severe) obesity due to excess calories, R53.83 - Other fatigue Vitamin B12 and Folate Today D64.9 - Anemia, unspecified, E66.01 - Morbid (severe) obesity due to excess calories, R53.83 - Other fatigue Homocysteine Today D64.9 - Anemia, unspecified, E66.01 - Morbid (severe) obesity due to excess calories, R53.83 - Other fatigue Magnesium Today D64.9 - Anemia, unspecified, E66.01 - Morbid (severe) obesity due to excess calories, R53.83 - Other fatigue Coding Level of Care Code Est Pt Level 4 (69266) Diagnoses Mild obstructive sleep apnea G47.33 Nocturnal hypoxemia G47.34 Periodic limb movements of sleep G47.61
--- OUTSIDE RECORDS SUMMARY | 2024-05-04 21:51 | XMS_ITS | Continuity of Care Document ---
Author Organization [facility] [address] [place] [address] Phone [phone] Care Team Providers Care Fisher Hoop Net Name Role Phone Julien Velázquez MD Care Team Information Wallpaper Hanger [phone] Problems Active Problems Provider Date Testicular hypofunction Nick Chávez M.D. Onset: 11/06/2023 Asthma Nick Chávez M.D. Onset: 0 11/06/2023 Essential hypertension Nick Chávez M.D. O nset: 11/06/2023 Sleep apnea Nick Chávez M.D. Onset: 0 11/06/2023 Social History Type Date Description Comments Sex Unknown Tobacco Use Start: Unknown Never Smoked Cigarettes ETOH Use Occasionally consumes alcoho l Allergies and adverse reactions Active Allergies Criticality Reaction Severity Comments Date Penicillin Unable to assess criticality 11/06/2023 Medications Active Medications SIG Qnty Indications Ordering Provider Date Escitalopram Mmjexaf57tm Tablets Take 1 Tablet By Mouth Once Daily Julien Velázquez MD Ymeonkmaegccoxyqamb27q g Tablets Take 1 Tablet By Mouth Once Daily Julien Velázquez MD Metoprolol Succinate NK121md Tablets ER 24HR Take 1 Tablet By Mouth In The Morning And Take 1/2 tablet (50MG) In The pm Julien Veálzquez MD Sildenafil Ncstuda039gf Tablets Take 1 Tablet By Mouth Once Daily as Needed For Sexual Activity Take 30 Minutes Unknown Albuterol Sulfate RQC074(90Base) mcg/Act Aerosol inhale 2 Puffs By Mouth every 4 To 6 hours as Needed Shortness Of Breath Or For Julien Velázquez MD Ofdcllfbdr32sg Capsules DR take 1 capsule (40 mg) orally once daily for 30 days Julien Velázquez MD Vital Signs Date Vital Result Comment 11/06/2023 1:35pm BP Systolic 120 mmHg BP Diastolic 95 mmHg Heart Rate 76 /min Height 70 inches 5'10 Medical Devices Description No Information Available Encounters Type Date Location Provider Dx Diagnosis Office Visit 11/06/2023 1:45p Main Office Nick Suh M.D. 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 Plan of Treatment No Information Available Functional Status Description No Information Available Mental Status Description No Information Available Referrals Description No Information Available
== END 2024-05-03 15:08 | disposition home or self-care (01) ==
PROVIDERS: PCP Family Medicine; Visit Provider Nurse Practitioner Family
DX: G47.33 Obstructive sleep apnea (adult) (pediatric) (principal); G47.34 Idiopathic sleep related nonobstructive alveolar hypoventilation; G47.61 Periodic limb movement disorder
CPT/HCPCS: 99214

== ENCOUNTER 2024-05-04 09:52 | Outpatient (REF) | payer OTHER, SELFPAY ==
[2024-05-04 11:22] LABS: MANUAL DIFF FLAG NO
[2024-05-04 11:25] LABS: Appearance Urine Clear; Color Urine Yellow; Glucose Urine UA Negative (Negative); Leukocyte Esterase Urine Trace (Negative); Nitrite Urine Negative (Negative); UMIC TRIGGER UA YES; Urine Blood Negative (Negative); Urine Ketones Negative (Negative); Urine Protein Negative (Neg-Trace)
[2024-05-04 11:28] LABS: Bacteria Urine None Seen (None Seen); Hyaline Casts Urine 0-2 /LPF (0-2); RBC Urine 0-2 /HPF (0-2)
[2024-05-04 11:32] LABS: Basophils Absolute Auto 0.1 X10*3/uL (0.0-0.2); Basophils Percent Auto 0.6 % (0-2); Eosinophils Absolute Auto 0.2 X10*3/uL (0.0-0.4); Eosinophils Percent Auto 2.2 % (0-4); Hematocrit 43.2 % (42.0-52.0); Hemoglobin 13.2 g/dl (14.0-18.0); Imm Gran Abs Auto 0.05 X10*3/uL (0.00-0.03); Imm Gran Pct Auto 0.5 % (0.0-0.4); Lymphocytes Absolute Auto 2.3 X10*3/uL (1.2-4.9); Mean Corpuscular HGB Conc 30.6 g/dl (31.0-36.0); Mean Corpuscular Hemoglobin 23.9 pg (27.0-33.0); Mean Corpuscular Volume 78.1 fL (80.0-98.0); Mean Platelet Volume 10.6 fL (9.4-12.4); Monocytes Absolute Auto 0.4 X10*3/uL (0.1-1.2); Monocytes Percent Auto 3.9 % (2-11); Neutrophils Absolute Auto 7.7 x10*3/uL (2.0-8.3); Neutrophils Percent Auto 71.8 % (45-73); Platelet Count 420 X10*3/uL (160-400); Red Blood Count 5.53 X10*6/uL (4.60-5.80); Red Cell Distribution Width 15.1 % (11.0-16.0); White Blood Count 10.8 X10*3/uL (4.8-10.8)
[2024-05-04 11:43] LABS: Microalbum/Creatinine Ratio Ur 13.9 ug/mg cr (<30)
[2024-05-04 11:56] LABS: Alanine Aminotransferase 14 U/L (0-40); Albumin Level 3.9 g/dL (3.5-5.0); Alkaline Phosphatase 65 U/L (39-117); Anion Gap 12 (12-20); Aspartate Amino Transferase 17 U/L (5-37); Bilirubin Total 0.4 mg/dL (0.0-1.0); Blood Urea Nitrogen 13 mg/dL (9-16); Calcium 9.7 mg/dL (8.4-10.2); Carbon Dioxide 31 mmol/L (22-29); Chloride 100 mmol/L (96-108); Cholesterol 149 mg/dL (<200); Estimated Glomerular Filt Rate > 60; Glucose Fasting 104 mg/dL (60-99); HDL Cholesterol 41 mg/dL (>40); Iron 34 mcg/dL (45-160); LDL Cholesterol Calculated 89 mg/dL (<100); Magnesium 2.3 mg/dL (1.6-2.6); Percent Iron Saturation 14 % (15-50); Potassium 3.8 mmol/L (3.3-5.1); Sodium 139 mmol/L (135-145); Total Iron Binding Capacity 244 mcg/dL (228-428); Total Protein 7.8 g/dL (6.5-8.0); Triglycerides 97 mg/dL (<150); Unsaturated Iron Binding 210 ug/dL
[2024-05-04 12:04] LABS: Ferritin 82 ng/mL (20-250)
[2024-05-04 12:12] LABS: TSH reflex Free T4 2.66 uIU/mL (0.32-4.0)
[2024-05-04 12:16] LABS: Folate 5.9 ng/mL (> or = 4.0); Vitamin B12 513 pg/mL (200-900)
--- OUTSIDE RECORDS SUMMARY | 2024-05-04 23:54 | XMS_ITS | Continuity of Care Document ---
Author Organization [facility] [address] [place] [address] Phone [phone] Care Team Providers Care Blasting Machine Operator Name Role Phone Julien Velázquez MD Care Team Information Specimen Boss [phone] Problems Active Problems Provider Date Testicular hypofunction [...] SIG Qnty Indications Ordering Provider Date Escitalopram Phldusr42os Tablets Take 1 Tablet By Mouth Once Daily Julien Velázquez MD Ulwltpnhxwvbadxcdnh55y g Tablets Take 1 Tablet By Mouth Once Daily Julien Velázquez MD Metoprolol Succinate XM388bq Tablets ER 24HR Take 1 Tablet By Mouth In The Morning And Take 1/2 tablet (50MG) In The pm Julien Velázquez MD Sildenafil Wzfynmm316sd Tablets Take 1 Tablet By Mouth Once Daily as Needed For Sexual Activity Take 30 Minutes Unknown Albuterol Sulfate MEB482(90Base) mcg/Act Aerosol inhale 2 Puffs By Mouth every 4 To 6 hours as Needed Shortness Of Breath Or For Julien Velázquez MD Kpbijibpfk65zw Capsules DR take 1 capsule (40 mg) [...]
[2024-05-09 11:18] LABS: Methylmalonic Acid 254 nmol/L (55-335)
== END 2024-05-04 09:53 | disposition home or self-care (01) ==
LOC: HO.WFDLDS 09:52
PROVIDERS: Referring Provider Nurse Practitioner Family; Visit Provider Family Medicine
DX: Z00.00 Encounter for general adult medical examination without abnormal findings (principal); I10 Essential (primary) hypertension; R53.83 Other fatigue; E66.01 Morbid (severe) obesity due to excess calories; D64.9 Anemia, unspecified
CPT/HCPCS: 36415; 80053; 80061; 81001; 82043; 82570; 82607; 82728; 82746; 83540; 83735; 83921; 84443; 85025

== ENCOUNTER 2024-05-12 14:28 | Outpatient (AMB) | payer OTHER, SELFPAY ==
--- OUTSIDE RECORDS SUMMARY | 2024-05-12 14:30 | XMS_ITS ---
Continuity of Care Document (CCD) Created on: May 12, 2024 Quinton Workman External Reference #: [id number] : [id number] Sex: Male Author Organization [facility] [address] [place] [address] Phone [phone] Care Team Providers Care Assembler Steam And Gas Turbine Name Role Phone Julien Velázquez MD Care Team Information Pricing Intern [phone] Problems Active Problems Provider Date Testicular hypofunction [...] SIG Qnty Indications Ordering Provider Date Escitalopram Piollqm41pw Tablets Take 1 Tablet By Mouth Once Daily Julien Velázquez MD Lpqrjgakrwpufohpylu67e g Tablets Take 1 Tablet By Mouth Once Daily Julien Velázquez MD Metoprolol Succinate CD760mu Tablets ER 24HR Take 1 Tablet By Mouth In The Morning And Take 1/2 tablet (50MG) In The pm Julien Velázquez MD Sildenafil Tvzccot020lh Tablets Take 1 Tablet By Mouth Once Daily as Needed For Sexual Activity Take 30 Minutes Unknown Albuterol Sulfate XUU752(90Base) mcg/Act Aerosol inhale 2 Puffs By Mouth every 4 To 6 hours as Needed Shortness Of Breath Or For Julien Velázquez MD Ueiqgjixty64sc Capsules DR take 1 capsule (40 mg) [...]
--- NOTE | 2024-05-12 14:35 | A.OFFPC_ITS ---
Vital Signs 05/12/24 14:40 05/12/24 14:43 05/12/24 14:55 Height 5 ft 10 in Weight 565 lb BMI 81.1 BP 152/71 H 156/75 H 134/62 Blood Pressure Location Rt brachial Rt brachial Rt brachial Position Supine Sitting Standing Respiration 16 Pulse 94 92 126 H Pulse Source Pulse Oximeter Pulse Oximeter Pulse Oximeter Pulse Oximetry (%) 92 94 Oxygen Delivery Method Room Air Room Air Intake Visit Reasons: f/u fatigue, sleep apnea Intake Note: f/u for fatigue and sleep apnea questioning vertigo as well having symptom when laying down Allergies Penicillins Allergy (Mild, Verified 05/12/24 14:40) Hives Tobacco use date assessed: 08/14/23 Dental Screening Dental Screen Date: 08/14/23 HPI f/u fatigue, sleep apnea HPI Details 43 y/o male presents to f/u fatigue, sle ep apnea. Labs drawn 05/04/24. Reviewed labs with pt. Borderline anemia. Low iron. Elevated fasting glucose of 104. Triglycerides 97. TC 149. LDL 89. HDL 41. Blood pressure today 156/75, 92p. He is on HCTZ 25mg daily, metoprolol. Reports he has been having vertigo when laying down on his L side. HPI Comments History of Present Illness Details Documentation assistance for Julien Velázquez MD, was provided by En Allen,? Prepress Technician on 05/12/2024 at 3:25 PM EST. I, Dr. Velázquez, have read, observed, and verified documentation. ?? [facility] Medical History Palpitations High blood pressure Asthma Surgical History No pertinent past surgical history Family History Father High blood pressure Paranoid schizophrenia Diabetes Mother Asthma Paternal Grandfather High blood pressure Paternal Grandmother Diabetes High blood pressure Social History Household Members: Significant Other Housing: Apartment Are you a primary inspector health care facilities to a significant other at home: No Do you presently have visiting nurse or other home services: No Alcohol intake: current Comment: on occasion Patient Tobacco Use Status: Never used Tobacco e-Cigarette/Vaping Use: Never Used Special esther needs: No service: No Current occupational status: employed 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 Cognitive needs: No Hearing needs: No Vision needs: Yes (Patient wears glasses) Questionnaire PHQ-9 Over the last 2 weeks, how often have you been bothered by any of the following problems? 1. Little interest or pleasure in doing things: not at all 2. Feeling down, depressed, or hopeless: not at all 3. Trouble falling or staying asleep, or sleeping too much: not at all 4. Feeling tired or having little energy: not at all 5. Poor appetite or overeating: not at all 6. Feeling bad about yourself - or that you are a failure or have let yourself or your family down: not at all 7. Trouble concentrating on things, such as reading the newspaper or watching television: not at all 8. Moving or speaking so slowly that other people could have noticed. Or the opposite - being so fidgety or restless that you have been moving around a lot more than usual: not at all 9. Thoughts that you would be better off or of hurting yourself in some way: not at all Total score: 0 Source: Developed by Drs. Kd Jarrett, Maude Colorado, Leo Baugh and colleagues, with an educational vandana from [employer]. Thrive Questionnaire Date Thrive assessed: 05/05/24 I am a: Patient What is your living situation today?: I have a steady place to live Within the past 12 months, did the food you bought not last and you didn't have the money to get more?: Never true Within the past 12 months, did you worry whether your food would run out before you got money to buy more?: Never true Do you have trouble paying for medicines?: No Do you have trouble getting transportation to medical appointments?: No Do you have trouble paying your heating and electricity bill?: No Do you have trouble taking care of your child, family member or friend?: No Do you have trouble with day-to-day activities such as bathing, preparing meals, shopping, managing finances, etc.?: No Are you currently unemployed and looking for a job?: No Are you interested in more education?: No Please select the resources that you would like help with: None Currently or been in a relationship where the following occur: No concerns reported THRIVE Score: 0 AUDIT C Alcohol Use Questionnaire (AUDIT-C) 1. How often do you have a drink containing alcohol?: Monthly or less 2. How many drinks containing alcohol do you have on a typical day when you are drinking?: 1 or 2 3. How often do you have six or more drinks on one occasion?: Never Total Score: 1 PANFILO-7 AMB Questionnaire PANFILO-7 Date PANFILO - 7 assessed: 08/14/23 Feeling nervous, anxious, or on edge: 0 = Not at all Not being able to stop or control worryin = Not at all Worrying too much about different things: 0 = Not at all Trouble relaxin = Not at all Being so restless that it is hard to sit still: 0 = Not at all Becoming easily annoyed or irritable: 0 = Not at all Feeling afraid as if something awful might happen: 0 = Not at all Total PANFILO-7 score (0-4 normal; 5-9 mild; 10-14 moderate; 15-21 severe): 0 Source: Developed by Drs. Kd Jarrett, Maude Colorado, Leo Baugh and colleagues, with an educational vandana from [employer]. Review of Systems Const Denies chills, Denies fatigue, Denies fever(s), Denies headache(s) and Denies weakness ENT Denies dizziness and Denies headache(s) Card Denies dyspnea Resp Denies cough, Denies dyspnea, Denies wheezing and Denies other (shortness of breath) Musc Denies numbness and Denies tingling Neuro Denies dizziness, Denies headache(s), Denies numbness, Denies tingling and Denies weakness Psych Denies anxiety and Denies depression Endo Denies fatigue Aller/Immun Denies wheezing Physical exam (Primary Care) Vital Signs: Last Vital Signs Pulse 126 H 05/12/24 14:55 Resp 16 05/12/24 14:43 BP 134/62 05/12/24 14:55 Pulse Ox 94 05/12/24 14:55 Oxygen Delivery Method Room Air 05/12/24 14:55 BMI result Body Mass Index 81.1 Tobacco/Smoking Status: Tobacco use Status Tobacco use date assessed 08/14/23 05/12/24 14:39 Patient Tobacco Use Status Never used Tobacco 05/12/24 14:39 e-Cigarette/Vaping Use Never Used 05/12/24 14:39 PHQ-9: PHQ-9 Score PHQ-9: Total score 0 05/12/24 16:58 Thrive Assessment: Date of Thrive Assessment Date Thrive assessed 05/05/24 05/12/24 14:39 Currently or been in a relationship where the following occur: No concerns reported Const General: well developed; No acute distress Nutritional Appearance: well nourished Orientation/consciousness: patient oriented x3 HENMT Other: Ears show mild distension without erythema or fluids Head: Yes normocephalic and Yes atraumatic Eyes General: appearance normal, both eyes and all related structures Pupils: Equal, round and reactive pupils present EOM: EOMs intact bilaterally Resp Effort & Inspection: normal respiratory effort Neuro General: patient oriented x3 and gait normal Cranial nerves: Yes Equal, round and reactive pupils present Psych Affect: normal affect Coding Level of Care Code Est Pt Level 4 (39702) Diagnoses Fatigue R53.83 Sleep apnea G47.30 Vertigo R42 Orthostasis I95.1 Assessment & Plan Assessment & Plan (1) Fatigue: Code(s): R53.83 - Other fatigue Category: Medical Plan: Ongoing?fatigue.??This?is?likely?multifactorial He?has?been?diagnosed?with?sleep?apnea?and?now?has?a?CPAP?machine. Significantly?low?testosterone?levels.??He?had?been?referred?to?endocrinology?bu t?did?not?do?well?with?that?provider?would?like?a?new?referral. ?See?below (2) Sleep apnea: Code(s): G47.30 - Sleep apnea, unspecified Category: Medical Plan: As?above,?recently?diagnosed?with?sleep?apnea?and?has?CPAP?machine Continue?CPAP?machine?and?follow-up?with?sleep?medicine Continue?working?at?weight?loss (3) Vertigo: Code(s): R42 - Dizziness and giddiness Category: Medical Plan: Patient?notes?dizziness?that?is?always?associated?with?turning?his?head?or?rolli ng?over?while?lying?horizontally. Not?associated?with?standing?up though?patient?did ?did?show?small?amount?of?orthostasis?today.??He?notes?that?he?use?the?hydrates? well?but?did?not?do?so?today.??See?below Ears?show?mild?distention?without?erythema?or?fluid. Will?have?him?trial?a?steroid Will?send?him?to?vestibular?rehab (4) Orthostasis: Code(s): I95.1 - Orthostatic hypotension Category: Medical Plan: Medical?senior agricultural assistant?had?checked?for?orthostasis?and?this?appears?to?be?positive?as ?his systolic?blood?pressure?drops?about?20?po ints?when?standing?from?a?sitting?position.??And?his?heart?rate?increases?from?9 2-126?bpm. Patient?was?not?symptomatic?however. He?notes?that?he?did?not?have?an?water?today. Patient?will?hydrate?well. Will?recheck?at?next?visit?in?1?month. If?he?is?still?static?may?adjust?medications?or?consider?referral
[2024-05-12 14:40] VITALS: BP 152/71; PULSE 94
[2024-05-12 14:43] VITALS: BP 156/75; PULSE 92; RESP 16; O2SAT 92; BMI 81.1
[2024-05-12 14:55] VITALS: BP 134/62; PULSE 126; O2SAT 94
== END 2024-05-12 15:40 | disposition home or self-care (01) ==
PROVIDERS: Visit Provider Family Medicine
DX: R53.83 Other fatigue (principal); G47.30 Sleep apnea, unspecified; R42 Dizziness and giddiness; I95.1 Orthostatic hypotension

== ENCOUNTER 2024-05-13 14:13 | Outpatient (REF) | payer OTHER, SELFPAY ==
--- OUTSIDE RECORDS SUMMARY | 2024-05-13 14:15 | XMS_ITS | Continuity of Care Document ---
Author Organization [facility] [address] [place] [address] Phone [phone] Care Team Providers Care Electric Fork Operator Name Role Phone Julien Velázquez MD Care Team Information Migratory Farm Hand [phone] Problems Active Problems Provider Date Testicular hypofunction [...] SIG Qnty Indications Ordering Provider Date Escitalopram Mkgkxcz10er Tablets Take 1 Tablet By Mouth Once Daily Julien Velázquez MD Xbcijgzagpvxruvywzj38h g Tablets Take 1 Tablet By Mouth Once Daily Julien Velázquez MD Metoprolol Succinate GV375kq Tablets ER 24HR Take 1 Tablet By Mouth In The Morning And Take 1/2 tablet (50MG) In The pm Julien Velázquez MD Sildenafil Oxnhydr283kk Tablets Take 1 Tablet By Mouth Once Daily as Needed For Sexual Activity Take 30 Minutes Unknown Albuterol Sulfate KGC149(90Base) mcg/Act Aerosol inhale 2 Puffs By Mouth every 4 To 6 hours as Needed Shortness Of Breath Or For Julien Velázquez MD Dwjyhbcloq25ov Capsules DR take 1 capsule (40 mg) [...]
[2024-05-13 15:03] LABS: Creatinine, mg/dL 101.71; Protein mg/dL < 7 mg/dL
[2024-05-13 19:04] LABS: Creatinine, 24Hr Urine 2.2 G/Day (1.0-2.0); Protein 24 Hr Urine < 154 mg/Day (<150); Total Volume 24 Hour Urine 2200 mL
== END 2024-05-13 14:14 | disposition home or self-care (01) ==
LOC: HO.LNP 14:13
PROVIDERS: Visit Provider Nurse Practitioner Family
DX: R53.83 Other fatigue (principal); E66.01 Morbid (severe) obesity due to excess calories; D64.9 Anemia, unspecified
CPT/HCPCS: 84156

== ENCOUNTER 2024-07-14 13:31 | Outpatient (AMB) | payer OTHER, SELFPAY ==
--- NOTE | 2024-07-14 13:28 | A.OFFPC_ITS ---
Intake Visit Reasons: discuss allergy shots Allergies Penicillins Allergy (Mild, Verified 07/14/24 13:28) Hives Medication List - Last Reconciled 07/14/24 by Julien Velázquez MD albuterol sulfate 90 mcg/actuation (ProAir HFA) 2 puffs inhalation Q4-6H PRN 30 days ascorbic acid (vitamin C) 500 mg orally 3 times per week; Take with iron 4 weeks escitalopram oxalate 10 mg PO DAILY 90 days ferrous gluconate 324 mg PO 3XW 4 weeks fexofenadine (Cristiana Allergy) 180 mg PO DAILY hydrochlorothiazide 25 mg PO DAILY 90 days magnesium chloride 64 mg PO DAILY metoprolol succinate ER 1 tab (100mg) AM and 0.5 tabs (50mg) PM. 90 days omeprazole 40 mg PO DAILY 30 days Tobacco use date assessed: 08/14/23 Dental Screening Dental Screen Date: 08/14/23 HPI discuss allergy shots HPI Details 44 y/o male presents to discuss allergy shots. He notes his partner moved in with her cat and is requesting shots to protect himself from allergens. Allergies and in the past had seen Dr Valladares Was getting Shots and on maintenence [facility] Medical History Palpitations High blood pressure Asthma Surgical History No pertinent past surgical history Family History Father High blood pressure Paranoid schizophrenia Diabetes Mother Asthma Paternal Grandfather High blood pressure Paternal Grandmother Diabetes High blood pressure Social History Household Members: Significant Other Housing: Apartment Are you a primary care management specialist to a significant other at home: No Do you presently have visiting nurse or other home services: No 75 years or older and lives alone: No Alcohol intake: current Comment: on occasion Patient Tobacco Use Status: Never used Tobacco e-Cigarette/Vaping Use: Never Used Special esther needs: No service: No Current occupational status: employed 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 Cognitive needs: No Hearing needs: No Vision needs: Yes (Patient wears glasses) Questionnaire Thrive Questionnaire Date Thrive assessed: 05/05/24 PANFILO-7 AMB Questionnaire PANFILO-7 Date PANFILO - 7 assessed: 08/14/23 Source: Developed by Drs. Kd Jarrett, Maude [place], Leo Baugh and colleagues, with an educational vandana from [employer]. Physical exam (Primary Care) Tobacco/Smoking Status: Tobacco use Status Tobacco use date assessed 08/14/23 07/14/24 13:29 Patient Tobacco Use Status Never used Tobacco 07/14/24 13:29 e-Cigarette/Vaping Use Never Used 07/14/24 13:29 Thrive Assessment: Date of Thrive Assessment Date Thrive assessed 05/05/24 07/14/24 13:29 Telehealth Telehealth Telehealth Platform: Telephone Location of provider rendering services: practice address Location of patient: address on file Patient Identification confirmed using: Name, : Yes Telehealth method: voice only Patient verbally consented to treatment: Yes Patient verbally consented to billing insurance company: Yes Patient informed of any privacy concerns related to visit: Yes Minutes spent on Phone/Video with Pt.: 5 Coding Level of Care Code Tele Est Pt Level 2 (85333) Diagnoses Allergies T78.40XA Assessment & Plan Assessment & Plan (1) Allergies: Code(s): T78.40XA - Allergy, unspecified, initial encounter Category: Medical Plan: Chronic?allergy Will?refer?him?to?immunology?to?continue?allergy?shots Continue?Cristiana Orders: Referrals Allergy & Immunology Referral J45.909 - Unspecified asthma, uncomplicated, R42 - Dizziness and giddiness, T78.40XA - Allergy, unspecified, initial encounter
--- OUTSIDE RECORDS SUMMARY | 2024-07-14 14:28 | XMS_ITS | Encounter Summary ---
Author Organization [facility] Address [address] [place] [address] Care Team Providers Care Transformer Maker Name Role Phone Valerio Thompson MD Primary Care Provider Unavailable Reason for Visit * Reason Comments Medication Refill Encounter Details Date Type Department Care Team (Late st Contact Info) Description 12/12/2022 Refill [facility] Department of Internal Medicine [address] [place] [phone] Valerio Thompson MD Needs valid address Benign essential hypertension; Anxiety; Heart palpitations Social History Tobacco Use Types Packs/Day Years Used Date Smoking Tobacco: Never Assessed Sex and Gender Information Value Date Recorded Sex Assigned at Male 06/27/2022 10:28 AM EST Gender Identity Male 06/23/2022 2:10 PM EST Sexual Orientation Choose not to disclose 2022 10:28 AM EST documented as of this encounter Plan of Treatment Not on file documented as of this encounter Visit Diagnoses Diagnosis Benign essential hypertension Essential hypertension, benign Anxiety Anxiety state, unspecified Heart palpitations Palpitations documented in this encounter Care Teams Transformer Maker Relationship Specialty Start Date End Date Valerio Thompson MD PCP - General 02/10/23 documented as of this encounter
--- OUTSIDE RECORDS SUMMARY | 2024-07-14 14:28 | XMS_ITS | Continuity of Care Document ---
Author Organization [facility] [address] [place] [address] Phone [phone] Care Team Providers Care Seat Scooper Machine Name Role Phone Julien Velázquez MD Care Team Information Infection Preventionist [phone] Problems Active Problems Provider Date Testicular hypofunction [...] SIG Qnty Indications Ordering Provider Date Escitalopram [id number] Tablets Take 1 Tablet By Mouth Once Daily Julien Velázquez MD Kdmsjwrwnlwtayvplwz22l g Tablets Take 1 Tablet By Mouth Once Daily Julien Velázquez MD Metoprolol Succinate [id number] Tablets ER 24HR Take 1 Tablet By Mouth In The Morning And Take 1/2 tablet (50MG) In The pm Julien Velázquez MD Sildenafil [id number] Tablets Take 1 Tablet By Mouth Once Daily as Needed For Sexual Activity Take 30 Minutes Unknown Albuterol Sulfate CII575(90Base) mcg/Act Aerosol inhale 2 Puffs By Mouth every 4 To 6 hours as Needed Shortness Of Breath Or For Julien Velázquez MD [id number] Capsules DR take 1 capsule (40 mg) [...]
--- OUTSIDE RECORDS SUMMARY | 2024-07-14 14:28 | XMS_ITS | Encounter Summary ---
Author Organization [facility] Address [address] [place] [address] Care Team Providers Care Public Information Coordinator Name Role Phone Unavailable Primary Care Provider Unavailabl e Reason for Visit * Reason Comments Medication Refill Encounter Details Date Type Department Care Team (Late st Contact Info) Description 03/04/2023 Refill [facility] Department of Internal Medicine [address] [place] [phone] Valerio Thompson MD Needs valid address Heart palpitations; Benign essential hypertension; Anxiety Social History Tobacco Use Types Packs/Day Years [...] as of this encounter Visit Diagnoses Diagnosis Heart palpitations Palpitations Benign essential hypertension Essential hypertension, benign Anxiety Anxiety state, unspecified documented in this encounter
--- OUTSIDE RECORDS SUMMARY | 2024-07-14 14:28 | XMS_ITS | Clinical Summary ---
Author Organization [facility] Address [address] [place] [address] Care Team Providers Care Window And Siding Craftsman Name Role Phone Unavailable Primary Care Provider Unavailabl e Allergies Active Allergy Reactions Criticality Noted Date Comments Losartan Other (See Comments) 09/23/2022 Electrolyte disfunction Penicillins Other (See Comments) 09/23/2022 Medications Medication Sig Dispensed Refills Start Date End Date Status fexofenadine (Cristiana Allergy) 180 MG tablet Take by mouth. Active magnesium chloride DR (Mag64) 64 MG Tablet Delayed Response Take 1 tablet by mouth daily. 02/15/2020 Active Beclomethasone (Qvar RediHaler) 80 MCG/ACT Aerosol, Breath Activate inhaler Inhale. 11/30/2019 Active ibuprofen (MOTRIN) 800 mg tabletIndications:Non specific syndrome suggestive of viral illness Take 1 tablet (800 mg total) by mouth 3 times daily (every 8 hours) as needed for mild pain or moderate pain. 10 tablet 09/23/2022 Active oseltamivir (TAMIFLU) 75 MG capsuleIndications:In fluenza Take 1 capsule (75 mg total) by mouth 2 (two) times a day. 10 capsule 09/23/2022 Active escitalopram (LEXAPRO) 10 MG tabletIndications:Anx iety Take 1 tablet (10 mg total) by mouth daily. 30 tablet 03/10/2023 Active hydroCHLOROthiazide (HYDRODIURIL) 25 MG tabletIndications:Parker ign essential hypertension Take 1 tablet (25 mg total) by mouth daily. 30 tablet 03/10/2023 Active metoPROLOL SUCCINATE (TOPROL-XL) 50 MG 24 hr tabletIndications:Hea rt palpitations Take 1 tab in AM and 1.5 tab (75mg) in PM 75 tablet 03/10/2023 Active Active Problems Problem Noted Date Diagnosed Date Nonspecific syndrome suggestive of viral illness 09/23/2022 Influenza 09/23/2022 Assessment & Plan (09/23/2022 12:59 PM EDT): Flu : +rapid flu test , send for covid 19 pcr, rsv. Office rapid strep is neg. Rest and fluids Ibuprofen 800mg max tid with food , caution on se of excessive nsaid use Start tamiflu bid x 5days Work note x 4days If not improving or worsening sx, call us Immunizations Name Administration Dates Next Due Covid-19 MRNA Vaccine - Pfizer 12+ (Purple Cap) 09/17/2020,08/25/2020 Covid-19 mRNA Primary Series Vaccine - Moderna 0.5 mL Full Dose 04/05/2021 Influenza Inactivated/Split Preservative Free IM 06/27/2017 Influenza, Unspecified 02/23/2016 Tdap 07/16/2018 Social History Tobacco Use Types Packs/Day Years Used Date Smoking Tobacco: Never Assessed Sex and Gender Information Value Date Recorded Sex Assigned at Male 06/27/2022 10:28 AM EST Gender Identity Male 06/23/2022 2:10 PM EST Sexual Orientation Choose not to disclose 2022 10:28 AM EST Last Filed Vital Signs Vital Sign Reading Time Taken Comments Blood Pressure 114/90 09/23/2022 10:51 AM EDT Pulse 106 09/23/2022 10:51 AM EDT Temperature 36.9 ??C (98.5 ??F) 09/23/2022 10:51 AM E DT Respiratory Rate - - Oxygen Saturation - - Inhaled Oxygen Concentration - - Weight 229 kg (505 lb) 09/23/2022 10:51 AM EDT Height - - Body Mass Index - - Plan of Treatment Health Maintenance Due Date Last Done Comments Hepatitis C Virus Screening 1982 HIV Screening 1995 Hepatitis B Vaccines (1 of 3 - 19+ 3-dose series) 2001 Influenza Vaccine 12/24/2023 06/27/2017, 02/23/2016 COVID-19 Vaccine (2023-2 5 season) 2024 04/05/2021, 09/17/2020, 08/25/2020 DTaP/Tdap/Td Vaccines (2 - T d or Tdap) 07/16/2028 07/16/2018 HPV Vaccines Aged Out No longer eligi ble based on patient's age to complete this topic Pneumococcal Vaccine: Pediatric (0-5 Years) and At-Risk Patients (6 to 49 Years) Aged Out No longer eligible b ased on patient's age to complete this topic
== END 2024-07-14 15:17 | disposition home or self-care (01) ==
LOC: HO.HMCFM 13:31
PROVIDERS: PCP Family Medicine; Visit Provider Family Medicine
DX: T78.40XA Allergy, unspecified, initial encounter (principal)

== ENCOUNTER 2024-09-21 09:16 | Outpatient (AMB) | payer OTHER, SELFPAY ==
--- NOTE | 2024-09-21 09:21 | MHC.PC.OV ---
Vital Signs 09/21/24 09:27 09/21/24 09:37 09/21/24 09:37 Height 5 ft 10 in Weight 550 lb BMI 78.9 BP 120/80 144/67 H 152/71 H Blood Pressure Location Lt brachial Rt brachial Rt brachial Position Sitting Supine Standing Respiration 16 Pulse 88 84 118 H Pulse Source Pulse Oximeter Pulse Oximeter Pulse Oximeter Temp 97.9 F Temp Source Oral Pulse Oximetry (%) 95 Oxygen Delivery Method Room Air Intake Visit Reasons: f/u vertigo, chronic conditions Intake Note: Patient is scheduled to follow up on vertigo/and recovering from covid and has been experiencing ear aches Allergies Penicillins Allergy (Mild, Verified 09/21/24 09:25) Hives Medication List - Last Reconciled 09/21/24 by Julien Velázquez MD albuterol sulfate 90 mcg/actuation (ProAir HFA) 2 puffs inhalation Q4-6H PRN 30 days ascorbic acid (vitamin C) 500 mg orally 3 times per week; Take with iron 4 weeks escitalopram oxalate 10 mg PO DAILY 90 days ferrous gluconate 324 mg PO 3XW 4 weeks fexofenadine (Cristiana Allergy) 180 mg PO DAILY hydrochlorothiazide 25 mg PO DAILY 90 days magnesium chloride 64 mg PO DAILY metoprolol succinate ER 1 tab (100mg) AM and 0.5 tabs (50mg) PM. 90 days omeprazole 40 mg PO DAILY 30 days Tobacco use date assessed: 08/14/23 Dental Screening Dental Screen Date: 08/14/23 HPI f/u vertigo, chronic conditions HPI Details Patient?presents?to?follow-up?vertigo At?his?last?visit?he?was?describing?vertigo?which?always?seemed?to?be?associated?with?turning?his?head?or?rolling?in?bed?but?not?with?changing?position?to?vertical/standing.??However,?at?the?same?time?he?was?positive?for?mild?orthostasis. Also?patient?has?issues?with?allergies?and?had?had?a?prior?COVID?infection. We?had?encouraged?increasing?hydration.??Also?encouraged?using?antihistamine?medication. He reports vertigo has improved. Reports sinus congestion and earaches that comes and goes. Ongoing complaints of low testosterone levels. BP today 152/71, 118p. [facility] Medical History Palpitations High blood pressure Asthma Surgical History No pertinent past surgical history Family History Father High blood pressure Paranoid schizophrenia Diabetes Mother Asthma Paternal Grandfather High blood pressure Paternal Grandmother Diabetes High blood pressure Social History Household Members: Significant Other Housing: Apartment Are you a primary child care supervisor to a significant other at home: No Do you presently have visiting nurse or other home services: No 75 years or older and lives alone: No Alcohol intake: current Comment: on occasion Patient Tobacco Use Status: Never used Tobacco e-Cigarette/Vaping Use: Never Used Special esther needs: No service: No Current occupational status: employed 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 Cognitive needs: No Hearing needs: No Vision needs: Yes (Patient wears glasses) Questionnaire PHQ-9 Over the last 2 weeks, how often have you been bothered by any of the following problems? 1. Little interest or pleasure in doing things: not at all 2. Feeling down, depressed, or hopeless: not at all 3. Trouble falling or staying asleep, or sleeping too much: not at all 4. Feeling tired or having little energy: not at all 5. Poor appetite or overeating: not at all 6. Feeling bad about yourself - or that you are a failure or have let yourself or your family down: not at all 7. Trouble concentrating on things, such as reading the newspaper or watching television: not at all 8. Moving or speaking so slowly that other people could have noticed. Or the opposite - being so fidgety or restless that you have been moving around a lot more than usual: not at all 9. Thoughts that you would be better off or of hurting yourself in some way: not at all Total score: 0 Source: Developed by Drs. Kd Jarrett, Maude Leo Rosenberg and colleagues, with an educational vandana from [employer]. Thrive Questionnaire Date Thrive assessed: 07/25/24 I am a: Patient What is your living situation today?: I have a steady place to live Within the past 12 months, did the food you bought not last and you didn't have the money to get more?: Never true Within the past 12 months, did you worry whether your food would run out before you got money to buy more?: Never true Do you have trouble paying for medicines?: No Do you have trouble getting transportation to medical appointments?: No Do you have trouble paying your heating and electricity bill?: No Do you have trouble taking care of your child, family member or friend?: No Do you have trouble with day-to-day activities such as bathing, preparing meals, shopping, managing finances, etc.?: No Are you currently unemployed and looking for a job?: Yes Are you interested in more education?: No Please select the resources that you would like help with: None Currently or been in a relationship where the following occur: No concerns reported THRIVE Score: 0 PANFILO-7 AMB Questionnaire PANFILO-7 Date PANFILO - 7 assessed: 08/14/23 Source: Developed by Drs. Kd Jarrett, Leo Heller and colleagues, with an educational vandana from [employer]. Review of Systems Const Denies chills, Denies fatigue, Denies fever(s), Denies headache(s) and Denies weakness ENT Denies dizziness and Denies headache(s) Card Denies dyspnea Resp Denies cough, Denies dyspnea, Denies wheezing and Denies other (shortness of breath) Musc Denies numbness and Denies tingling Neuro Denies dizziness, Denies headache(s), Denies numbness, Denies tingling and Denies weakness Psych Denies anxiety and Denies depression Endo Denies fatigue Aller/Immun Denies wheezing Physical exam (Primary Care) Vital Signs: Last Vital Signs Temp 97.9 F 09/21/24 09:27 Pulse 88 09/21/24 09:27 Resp 16 09/21/24 09:27 BP 120/80 09/21/24 09:27 Pulse Ox 95 09/21/24 09:27 Oxygen Delivery Method Room Air 09/21/24 09:27 BMI result Body Mass Index 78.9 Tobacco/Smoking Status: Tobacco use Status Tobacco use date assessed 08/14/23 09/21/24 09:22 Patient Tobacco Use Status Never used Tobacco 09/21/24 09:22 e-Cigarette/Vaping Use Never Used 09/21/24 09:22 PHQ-9: PHQ-9 Score PHQ-9: Total score 0 09/21/24 09:33 Thrive Assessment: Date of Thrive Assessment Date Thrive assessed 07/25/24 09/21/24 09:22 Currently or been in a relationship where the following occur: No concerns reported Const General: well developed; No acute distress Nutritional Appearance: well nourished and obese morbidly obese Orientation/consciousness: patient oriented x3 HENMT Head: Yes normocephalic and Yes atraumatic Eyes General: appearance normal, both eyes and all related structures Pupils: Equal, round and reactive pupils present EOM: EOMs intact bilaterally Resp Effort & Inspection: normal respiratory effort Neuro General: patient oriented x3 and gait normal Cranial nerves: Yes Equal, round and reactive pupils present Psych Affect: normal affect Coding Level of Care Code Est Pt Level 4 (52980) Diagnoses Vertigo R42 Orthostasis I95.1 Hypogonadism in male E29.1 Ear discomfort H92.09 High blood pressure I10 Assessment & Plan Assessment & Plan (1) Vertigo: Code(s): R42 - Dizziness and giddiness Category: Medical Plan: Patient?says?vertigo?has?resolved. (2) Orthostasis: Code(s): I95.1 - Orthostatic hypotension Category: Medical Plan: He?had?had?mild?orthostasis?at?his?last?visit?and?we?had?recommended?increasing?hydration. Orthostatics?negative?today Continue?good?hydration (3) Hypogonadism in male: Code(s): E29.1 - Testicular hypofunction Category: Medical Plan: Patient?was?referred?to?endocrinology?but?did?not?like?the?provider Made?a?new?referral?but?he?has?not?heard?back.??I?gave?him?the?phone?number?for?the?new?provider. (4) Ear discomfort: Code(s): H92.09 - Otalgia, unspecified ear Category: Medical Plan: Left?ear?pain. He?had?noted?pain?and?pressure?at?his?left?ear?after?his?COVID?infection This?is?already?begun?to?resolve. On?direct?visualization,?he?has?mild?erythema?and?an?apparent?recent?scar?which?appears?to?have?healed. Likely?had L O.M. he?which?drained?spontaneously. Resolved/resolving (5) High blood pressure: Code(s): I10 - Essential (primary) hypertension Category: Medical Plan: Blood?pressure?is?too?high?while?sitting. He?is?already?taking?hydrochlorothiazide. Will?add?lisinopril. Orders: Orders MMR Immunization Today Z23 - Encounter for immunization Medications: New M-M-R II (PF) (measles,mumps,rubella vacc(PF)) 0.5 mL subcut ONCE 1 ea 0RF NS Z23 - Encounter for immunization lisinopril 10 mg PO DAILY 90 days 90 tabs 2RF
[2024-09-21 09:27] VITALS: BP 120/80; PULSE 88; RESP 16; TEMP 36.6; O2SAT 95; BMI 78.9
[2024-09-21 09:37] VITALS: BP 144/67; BP 152/71; PULSE 118; PULSE 84
--- OUTSIDE RECORDS SUMMARY | 2024-09-21 09:53 | XMS_ITS | Encounter Summary ---
Author Organization [facility] Address [address] [place] [address] Care Team Providers Care Pit Crew Support Worker Name Role Phone Valerio Thompson MD Primary Care Provider Unavailable Reason for Visit * Reason Comments Medication Refill Encounter Details Date Type Department Care Team (Late st Contact Info) Description 12/12/2022 Refill [facility] Department of Internal Medicine [address] [place] [phone] Valerio Thompson MD Benign essential hypertension; Anxiety; Heart palpitations Social History Tobacco Use Types Packs/Day Years Used Date Smoking Tobacco: Never Assessed Sex and Gender Information Value Date Recorded Sex Assigned at Male 06/27/2022 10:28 AM EST Legal Sex Male 7:51 PM EST Gender Identity Male 06/23/2022 2:10 PM EST Sexual Orientation Choose not to disclose 2022 10:28 AM EST documented as of this encounter Plan of Treatment Not on file documented as of this encounter Visit Diagnoses Diagnosis Benign essential hypertension Essential hypertension, benign Anxiety Anxiety state, unspecified Heart palpitations Palpitations documented in this encounter Care Teams Pit Crew Support Worker Relationship Specialty Start Date End Date Valerio Thompson MD PCP - General 02/10/23 documented as of this encounter
--- OUTSIDE RECORDS SUMMARY | 2024-09-21 09:53 | XMS_ITS | Continuity of Care Document ---
Author Organization [facility] [address] [place] [address] Phone [phone] Care Team Providers Care Airplane Electrical Repairer Name Role Phone Julien Velázquez MD Care Team Information Artists' Model [phone] Problems Active Problems Provider Date Testicular hypofunction [...] SIG Qnty Indications Ordering Provider Date Escitalopram Zkvzhlz71gg Tablets Take 1 Tablet By Mouth Once Daily Julien Velázquez MD Jodozijshqhsuqwjufh88o g Tablets Take 1 Tablet By Mouth Once Daily Julien Velázquez MD Metoprolol Succinate [id number] Tablets ER 24HR Take 1 Tablet By Mouth In The Morning And Take 1/2 tablet (50MG) In The pm Julien Velázquez MD Sildenafil Eoaqhec891re Tablets Take 1 Tablet By Mouth Once Daily as Needed For Sexual Activity Take 30 Minutes Unknown Albuterol Sulfate NPU057(90Base) mcg/Act Aerosol inhale 2 Puffs By Mouth every 4 To 6 hours as Needed Shortness Of Breath Or For Julien Velázquez MD Ebgkeujznn03uw Capsules DR take 1 capsule (40 mg) [...]
--- OUTSIDE RECORDS SUMMARY | 2024-09-21 09:53 | XMS_ITS | Encounter Summary ---
Author Organization [facility] Address [address] [place] [address] Care Team Providers Care Director Of Guidance Name Role Phone Unavailable Primary Care Provider Unavailabl e Reason for Visit * Reason Comments Medication Refill Encounter Details Date Type Department Care Team (Late st Contact Info) Description 03/04/2023 Refill [facility] Department of Internal Medicine [address] [place] [phone] Valerio Thompson MD Heart palpitations; Benign essential hypertension; Anxiety Social [...]
--- OUTSIDE RECORDS SUMMARY | 2024-09-21 09:53 | XMS_ITS | Clinical Summary ---
Author Organization [facility] Address [address] [place] [address] Care Team Providers Care Reinforcing Steel Placer Name Role Phone Unavailable Primary Care Provider Unavailabl e Allergies Active Allergy Reactions Criticality Noted Date Comments Losartan Other (See Comments) 09/23/2022 Electrolyte disfunction Penicillins Other (See Comments) 09/23/2022 Medications fexofenadine (Cristiana Allergy) 180 MG tablet Take by mouth. Active magnesium chloride DR (Mag64) 64 MG Tablet Delayed Response Take 1 tablet by mouth daily. 0 Active Beclomethasone (Qvar RediHaler) 80 MCG/ACT Aerosol, Breath Activate inhaler Inhale. 0 Active ibuprofen (MOTRIN) 800 mg tabletIndications :Nonspecific syndrome suggestive of viral illness Take 1 tablet (800 mg total) by mouth 3 times daily (every 8 hours) as needed for mild pain or moderate pain. 10 tablet 3 Active oseltamivir (TAMIFLU) 75 MG capsuleIndication s:Influenza Take 1 capsule (75 mg total) by mouth 2 (two) times a day. 10 capsule 3 Active escitalopram (LEXAPRO) 10 MG tabletIndications :Anxiety Take 1 tablet (10 mg total) by mouth daily. 30 tablet 3 Active hydroCHLOROthiazi de (HYDRODIURIL) 25 MG tabletIndications :Benign essential hypertension Take 1 tablet (25 mg total) by mouth daily. 30 tablet 3 Active metoPROLOL SUCCINATE (TOPROL-XL) 50 MG 24 hr tabletIndications :Heart palpitations Take 1 tab in AM and 1.5 tab (75mg) in PM 75 tablet 3 Active Active Problems Problem Noted Date Diagnosed [...] improving or worsening sx, call us Immunizations Immunization Administration Dates Next Due Covid-19 MRNA Vaccine [...] on patient's age to complete this topic Insurance
== END 2024-09-21 09:56 | disposition home or self-care (01) ==
LOC: HO.HMCFM 09:17
PROVIDERS: PCP Family Medicine; Visit Provider Family Medicine
DX: R42 Dizziness and giddiness (principal); I95.1 Orthostatic hypotension; E29.1 Testicular hypofunction; H92.09 Otalgia, unspecified ear; I10 Essential (primary) hypertension

== ENCOUNTER → 2024-09-21 09:16 | Outpatient (BNVA) | payer OTHER, SELFPAY | PROVIDERS: PCP Family Medicine; Visit Provider Family Medicine | DX: R42 Dizziness and giddiness (principal); I95.1 Orthostatic hypotension; E29.1 Testicular hypofunction; H92.02 Otalgia, left ear; I10 Essential (primary) hypertension; Z79.899 Other long term (current) drug therapy | CPT/HCPCS: 99212 ==

== ENCOUNTER 2024-09-28 13:46 | Outpatient (AMB) | payer OTHER, SELFPAY ==
--- NOTE | 2024-09-28 14:03 | MHC.OFFVIS ---
Vital Signs 09/28/24 14:08 Height 5 ft 10 in BP 120/76 Blood Pressure Location Rt brachial Position Sitting Pulse 98 Pulse Source Pulse Oximeter Pulse Oximetry (%) 97 Oxygen Delivery Method Room Air Intake Visit Reasons: f/u appt Intake Note: Patient presents presents follow up for ZOE. Compliance in chart. Steel Division Supervisor Required: No Accompanied by: Self / Same As Patient Allergies Penicillins Allergy (Mild, Verified 09/28/24 14:07) Hives Medication List - Last Reconciled 09/28/24 by NIMESH Oneill albuterol sulfate 90 mcg/actuation (ProAir HFA) 2 puffs inhalation Q4-6H PRN 30 days ascorbic acid (vitamin C) 500 mg orally 3 times per week; Take with iron 4 weeks escitalopram oxalate 10 mg PO DAILY 90 days ferrous gluconate 324 mg PO 3XW 4 weeks fexofenadine (Cristiana Allergy) 180 mg PO DAILY hydrochlorothiazide 25 mg PO DAILY 90 days lisinopril 10 mg PO DAILY 90 days magnesium chloride 64 mg PO DAILY metoprolol succinate ER 1 tab (100mg) AM and 0.5 tabs (50mg) PM. 90 days omeprazole 40 mg PO DAILY 30 days HPI Comments Details: 44-yr-old male presents for follow-up of ZOE. Since the last visit, pt has started to use his BiPAP. He states it was taking some time to adjust to sleeping with the BiPAP machine. States one night he would sleep well with it, then another night he would feel like the mask was too much. His mask also broke, so he was unable to use his BiPAP machine. States he just just recently received a mask replacement.. However, patient then developed Covid-19, a/w significant URI and nasal congestion, ear fullness, ear pain, positional vertigo, left TM rupture, and there ofre has not been able to use his BiPAP since. However, he is starting to feel better now- still needing to use the saline rinse, flonase, and careful nasal hygiene. He is hoping to resume using his BiPAP soon, as he knows it is good for his overall health. Interval 05/04/2024 lab work was notable for mild microcytic anemia, low iron, ferritin 82 (normal, however low in restless legs/periodic limb movement of sleep). Thus, patient was started on oral iron supplementation, which he is taking and tolerating well. 12/04/2023 in-lab sleep study which showed mild ZOE w/ hypoxemia and PLMS- decreased sleep efficiency, AHI 11.4 per hour, snoring for 5% of sleep study time, average SpO2 91% with O2 jerrell 80%, SpO2 under 88% for 11 minutes, average ET CO2 42-43 normal. Periodic limb movements of sleep 39 per hour with periodic limb movements sleep arousal index 11 per hour. 04/08/2024, in-lab PAP titration study, which showed improved sleep efficiency the patient did take a sleep aid prior to the study, best optimization of sleep apnea and nocturnal hypoxemia on BiPAP 16/10 cmH2O, however average SpO2 was 90% with O2 jerrell 85%, and SpO2 under 80% for 5 minutes of sleep study time. 07/18/2024, pulse oximetry study while on BiPAP which showed that BiPAP effectively prevents oxygen desaturations with average SpO2 92%, O2 jerrell 87%, with SpO2 less than 88% for 0.08 seconds, SpO2 above 90% for 99.5% of study time. 06/23/2024- 09/20/2024 BiPAP compliance report: [facility]: [facility] Overall usage 50% Usage greater than 4 hours 23% Average usage on days used 3 hours and 2 minutes BiPAP 16/10 cm H2O Serial number: [id number] Average leaks 0.1 L/min Residual AHI 0 0.1 cm H2O 10/13/23, Initial HPI: Pt reports his PCP has asked him to have sleep evaluated as part of his weight management work-up. Pt reports he had a HST in 2019 which was inconclusive, however pt states he did not sleep well during the study. His father had sleep apnea, his sister snores- but does not have sleep apnea. Sleep questionnaire: Have you ever been diagnosed with a sleep disorder? No Have you ever had a sleep study in the past? Yes- inconclusive Have you ever been treated for a sleep disorder? No Do you take medications for a sleep disorder? Occasionally may use CBD for sleep if neighbors are loud- as he is generally photophobic/phonophobic. Do you snore? Yes Do you wake up gasping at night? No Do you have episodes of apneas? No If yes, are they witnessed? No Do you have episodes of nocturnal chest pain or dyspnea? No Do you have difficulty initiating sleep? Not usually Do you have difficulty maintaining sleep? Not usually- but wakes up 1-2 x's per night to void. Do you wake up tired? Not always Do you have headaches upon awakening? No Do you wake up with dry mouth or throat? Sometimes Do you have GERD? Was having reflux, but better since starting prilosec. Do you have daytime tiredness or fatigue? Some. Do you have nocturnal leg cramps? No Do you have symptoms of restless legs? No Do you act out your dreams? Talks in his sleep Do you have dreams? Has had vivid dreams his whole life. No sleep sleep paralysis. Sleep hygiene questionnaire: What is your usual sleep routine? Usual bedtime is at 12-1am; Usual wake-up time is at 10am- typically 8.5-9hrs. Do you take naps? Sometimes around 6-7pm , for < 1 hr Is your sleep environment cool, dark, and quiet? Yes. Uses an eye mask. Do you exercise? States he should be doing more. Do you take caffeine or other stimulants? Coffee Lg ice coffee in am. Do you use electronics in bed? May watch phone in bed before going to bed. What is your work schedule? 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 Hypersomnolence questionnaire: Do you easily fall asleep when inactive? Sometimes Have you ever had episodes of sudden weakness? None Have you ever had episodes of sudden weakness associated with strong emotions? None PFSH Medical History Palpitations High blood pressure Asthma Surgical History No pertinent past surgical history Family History Father High blood pressure Paranoid schizophrenia Diabetes Mother Asthma Paternal Grandfather High blood pressure Paternal Grandmother Diabetes High blood pressure Social History Household Members: Significant Other Housing: Apartment Are you a primary career technical education instructor to a significant other at home: No Do you presently have visiting nurse or other home services: No 75 years or older and lives alone: No Alcohol intake: current Comment: on occasion Patient Tobacco Use Status: Never used Tobacco e-Cigarette/Vaping Use: Never Used Special esther needs: No service: No Current occupational status: employed 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 Cognitive needs: No Hearing needs: No Vision needs: Yes (Patient wears glasses) Physical Exam Vital Signs: Last Vital Signs Pulse 98 09/28/24 14:08 BP 120/76 09/28/24 14:08 Pulse Ox 97 09/28/24 14:08 Oxygen Delivery Method Room Air 09/28/24 14:08 Const General: no acute distress Orientation/consciousness: patient oriented x3 Resp Effort & Inspection: able to speak in complete sentences Neuro General: patient oriented x3 Psych Mental Status: mental status grossly normal Speech and movement: Clear speech present Attitude: cooperative Results Reviewed Results Reviewed: WBC 10.8 4.8-10.8 X10*3/uL RBC 5.53 4.60-5.80 X10*6/uL HGB 13.2 L 14.0-18.0 g/dl HCT 43.2 42.0-52.0 % MCV 78.1 L 80.0-98.0 fL MCH 23.9 L 27.0-33.0 pg MCHC 30.6 L 31.0-36.0 g/dl RDW 15.1 11.0-16.0 % PLT 420 H 160-400 X10*3/uL MPV 10.6 9.4-12.4 fL Neut Pct Auto 71.8 45-73 % ImGran Pct Auto 0.5 H 0.0-0.4 % Lymp Pct Auto 21.0 20-40 % Iroquois Pct Auto 3.9 2-11 % Eos Pct Auto 2.2 0-4 % Baso Pct Auto 0.6 0-2 % NRBC Pct Auto 0.0 0.0-0.2 /100WBC ANC Neut Abs # 7.7 2.0-8.3 x10*3/uL ImGran Abs Auto 0.05 H 0.00-0.03 X10*3/uL Lymph Abs Auto 2.3 1.2-4.9 X10*3/uL Iroquois Abs Auto 0.4 0.1-1.2 X10*3/uL Eos Abs Auto 0.2 0.0-0.4 X10*3/uL Baso Abs Auto 0.1 0.0-0.2 X10*3/uL NRBC Abs Auto 0.000 0.0-0.012 X10*3/uL Sodium 139 135-145 mmol/L Potassium 3.8 3.3-5.1 mmol/L CL 100 96-108 mmol/L CO2 31 H 22-29 mmol/L Gap 12 12-20 BUN 13 9-16 mg/dL Creat 0.88 0.5-1.4 mg/dL eGFR > 60 Chronic Kidney Disease: Estimated GFR < 60 mL/min/1.73m2 Severe Kidney Disease: Estimated GFR < 15 mL/min/1.73m2 FBS 104 H 60-99 mg/dL A fasting glucose from 100-125 mg/dl is considered impaired (pre-diabetes). CA 9.7 # 8.4-10.2 mg/dL Magnesium 2.3 1.6-2.6 mg/dL Iron 34 L 45-160 mcg/dL TIBC 244 228-428 mcg/dL Saturation 14 L 15-50 % UIBC 210 ug/dL Total Bili 0.4 0.0-1.0 mg/dL AST (GOT) 17 5-37 U/L ALT (GPT) 14 0-40 U/L Protein, Total 7.8 6.5-8.0 g/dL Alb 3.9 3.5-5.0 g/dL Triglyceride 97 <150 mg/dL Desirable Triglyceride: less than 150 mg/dL Borderline High Triglyceride 150-199 mg/dL High Triglyceride: 200-499 mg/dL Very High Triglyceride: greater than or equal to 5OO mg/dL Cholesterol 149 <200 mg/dL Desirable Cholesterol: less than 200 mg/dL Borderline High Cholesterol: 200-239 mg/dL High Cholesterol: greater than 239 mg/dL LDL Calculated 89 <100 mg/dL Desirable LDL: less than 100 mg/dL Near Optimal/Above Optimal LDL: 110-129 mg/dL Borderline High LDL: 130-159 mg/dL High LDL: 160-189 mg/dL Very High LDL: greater than or equal to 190 mg/dL HDL 41 >40 mg/dL Desirable HDL: greater than 40 mg/dL Note: This HDL assay may give artificially low results in patients with liver disease. Alk Phos 65 39-117 U/L TSH 2.66 0.32-4.0 uIU/mL Protein, 24U < 154 H <150 mg/Day Protein, mg/dL < 7 mg/dL Creatinine,24Hr 2.2 H 1.0-2.0 G/Day Creatinine,24U 101.71 24 Hr Volume 2200 Assessment & Plan Assessment & Plan (1) Mild obstructive sleep apnea: Comment: AHI 11.4 per hour, snoring for 5% of sleep study time, average SpO2 91% with O2 jerrell 80%, SpO2 under 88% for 11 minutes, average ET CO2 42-43 normal. Periodic limb movements of sleep 39 per hour with periodic limb movements sleep arousal index 11 per hour. Code(s): G47.33 - Obstructive sleep apnea (adult) (pediatric) Category: Medical (2) Nocturnal hypoxemia: Code(s): G47.34 - Idiopathic sleep related nonobstructive alveolar hypoventilation Category: Medical (3) Periodic limb movements of sleep: Code(s): G47.61 - Periodic limb movement disorder Category: Medical Plan Reviewed in-lab sleep study and follow-up Pap titration study. Now that patient's URI symptoms have resolved, resume BiPAP 16/10 cm H2O, as patient has good clinical effect from use with reduced residual AHI and stabilization of oxygenation with use. Advise to sleep with head slightly elevated, such as using a sleep apnea type pillow, which may improve BiPAP tolerance. Continue Flonase, nasal sprays- as decreasing nasal congestion can improve PAP tolerance. We will recheck labs- CBC, CMP, iron studies. Continue ferrous gluconate 324 mg 3 times per week with vitamin-C until review of above. Will follow-up upon review of above and patient to follow-up in clinic in 6 months or sooner prn. Orders: Orders Complete Blood Count Auto Diff Today E66.01 - Morbid (severe) obesity due to excess calories, I10 - Essential (primary) hypertension, R53.83 - Other fatigue Coding Level of Care Code Est Pt Level 4 (17322) Diagnoses Mild obstructive sleep apnea G47.33 Nocturnal hypoxemia G47.34 Periodic limb movements of sleep G47.61
[2024-09-28 14:08] VITALS: BP 120/76; PULSE 98; O2SAT 97
--- OUTSIDE RECORDS SUMMARY | 2024-09-28 15:05 | XMS_ITS | Clinical Summary ---
Author Organization [facility] Address [address] [place] [address] Care Team Providers Care Prison Keeper Name Role Phone Unavailable Primary Care Provider [...] of 3 - 19+ 3-dose series) 2001 COVID-19 Vaccine (2023-2 5 season) 2024 04/05/2021, 09/17/2020, 08/25/2020 Influenza Vaccine 12/23/2024 06/27/2017, 02/23/2016 DTaP/Tdap/Td Vaccines (2 - T d or Tdap) 07/16/2028 07/16/2018 HPV Vaccines Aged Out No longer eligi ble based on patient's age to complete this topic Pneumococcal Vaccine: Pediatric (0-5 Years) and At-Risk Patients (6 to 49 Years) Aged Out No longer eligible b ased on patient's age to complete this topic Insurance
--- OUTSIDE RECORDS SUMMARY | 2024-09-28 15:05 | XMS_ITS | Encounter Summary ---
Author Organization [facility] Address [address] [place] [address] Care Team Providers Care Machine Operator General Name Role Phone Valerio Thompson MD Primary Care Provider Unavailable Reason for Visit * Reason Comments Medication Refill Encounter Details Date Type Department Care Team (Late st Contact Info) Description 12/12/2022 Refill [facility] Department of Internal Medicine [address] [place] [phone] Valerio Thompson MD Benign essential hypertension; Anxiety; [...] Palpitations documented in this encounter Care Teams Machine Operator General Relationship Specialty Start Date End Date Valerio Thompson MD PCP - General 02/10/23 documented as of this encounter
--- OUTSIDE RECORDS SUMMARY | 2024-09-28 15:05 | XMS_ITS ---
Author Name [facility] Organization Unknown Encounters Encounter Type Encounter Reason Primary Diagnosis Location Date Ambulatory Viral infection, unspecified [facility] 09/23/2022 Care Team Organization Name Specialty Phone Email Start Date End Da te [facility] [employer] Kasia Aldana [facility] 09/23/2022 [facility] KALPANA ALDANA Primary [facility] 08/13/2022 08/13/2022
--- OUTSIDE RECORDS SUMMARY | 2024-09-28 15:05 | XMS_ITS | Continuity of Care Document ---
Author Organization [facility] [address] [place] [address] Phone [phone] Care Team Providers Care County Director Name Role Phone Julien Velázquez MD Care Team Information Guitar Maker [phone] Problems Active Problems Provider Date Testicular hypofunction [...] SIG Qnty Indications Ordering Provider Date Escitalopram [id number] Tablets Take 1 Tablet By Mouth Once Daily Julien Velázquez MD Ucztohwkodnorioxsil64g g Tablets Take 1 Tablet By Mouth Once Daily Julien Velázquez MD Metoprolol Succinate SD083od Tablets ER 24HR Take 1 Tablet By Mouth In The Morning And Take 1/2 tablet (50MG) In The pm Julien Velázquez MD Sildenafil [id number] Tablets Take 1 Tablet By Mouth Once Daily as Needed For Sexual Activity Take 30 Minutes Unknown Albuterol Sulfate ATZ440(90Base) mcg/Act Aerosol inhale 2 Puffs By Mouth every 4 To 6 hours as Needed Shortness Of Breath Or For Julien Velázquez MD Ctnclednzt97ue Capsules DR take 1 capsule (40 mg) [...]
--- OUTSIDE RECORDS SUMMARY | 2024-09-28 15:05 | XMS_ITS | Encounter Summary ---
Author Organization [facility] Address [address] [place] [address] Care Team Providers Care Storage Facility Housekeeper Name Role Phone Unavailable Primary Care Provider Unavailabl e Reason for Visit * Reason Comments Medication Refill Encounter Details Date Type Department Care Team (Late st Contact Info) Description 03/04/2023 Refill [facility] Department of Internal Medicine [address] [place] [phone] Valerio Thompson MD Heart palpitations; Benign essential [...]
== END 2024-09-28 14:44 | disposition home or self-care (01) ==
LOC: HO.HSMS 13:47
PROVIDERS: PCP Family Medicine; Visit Provider Nurse Practitioner Family
DX: G47.33 Obstructive sleep apnea (adult) (pediatric) (principal); G47.34 Idiopathic sleep related nonobstructive alveolar hypoventilation; G47.61 Periodic limb movement disorder
CPT/HCPCS: 99214

== ENCOUNTER → 2024-09-28 13:46 | Outpatient (BNVA) | payer OTHER, SELFPAY | PROVIDERS: PCP Family Medicine; Visit Provider Nurse Practitioner Family ==

== ENCOUNTER 2024-12-22 11:22 | Outpatient (AMB) | payer OTHER, SELFPAY ==
--- NOTE | 2024-12-22 11:38 | MHC.PC.OV ---
Vital Signs 12/22/24 11:44 Height 5 ft 10 in Weight 525 lb BMI 75.3 BP 132/63 Blood Pressure Location Rt brachial Position Sitting Respiration 16 Pulse 87 Pulse Source Pulse Oximeter Temp 97.8 F Temp Source Oral Pulse Oximetry (%) 93 Oxygen Delivery Method Room Air Intake Visit Reasons: f/u HTN, chronic conditions PHQ-9 needed. Intake Note: patient is scheduled for htn and chronic condition follow up yf Allergies Penicillins Allergy (Mild, Verified 09/28/24 14:07) Hives Medication List - Last Reconciled 12/22/24 by Julien Velázquez MD albuterol sulfate 90 mcg/actuation (ProAir HFA) 2 puffs inhalation Q4-6H PRN 30 days ascorbic acid (vitamin C) 500 mg orally 3 times per week; Take with iron 4 weeks escitalopram oxalate 10 mg PO DAILY 90 days ferrous gluconate 324 mg PO 3XW 4 weeks fexofenadine (Cristiana Allergy) 180 mg PO DAILY hydrochlorothiazide 25 mg PO DAILY 90 days lisinopril 10 mg PO DAILY 90 days magnesium chloride 64 mg PO DAILY metoprolol succinate ER 1 tab (100mg) AM and 0.5 tabs (50mg) PM. 90 days omeprazole 40 mg PO DAILY 30 days Tobacco use date assessed: 08/14/23 Dental Screening Dental Screen Date: 08/14/23 HPI f/u HTN, chronic conditions PHQ-9 needed. HPI Details 44 y/o male presents to f/u HTN, chronic conditions. BP today 132/63, 87p. He is on lisinopril 10mg, metoporlol, hydrochlorothiazide 25mg daily. Continues to use his inhalers for his asthma. HPI Comments History of Present Illness Details Documentation assistance for Julien Velázquez MD, was provided by En Allen,? [facility] on 12/22/2024 at 11:53 AM EST. I, Dr. Velázquez, have read, observed, and verified documentation. ?? PFSH Medical History Palpitations High blood pressure Asthma Surgical History No pertinent past surgical history Family History Father High blood pressure Paranoid schizophrenia Diabetes Mother Asthma Paternal Grandfather High blood pressure Paternal Grandmother Diabetes High blood pressure Social History Household Members: Significant Other Housing: Apartment Are you a primary home health care respiratory therapist to a significant other at home: No Do you presently have visiting nurse or other home services: No 75 years or older and lives alone: No Alcohol intake: current Comment: on occasion Patient Tobacco Use Status: Never used Tobacco e-Cigarette/Vaping Use: Never Used Special esther needs: No service: No Current occupational status: employed 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 Cognitive needs: No Hearing needs: No Vision needs: Yes (Patient wears glasses) Questionnaire PHQ-9 Over the last 2 weeks, how often have you been bothered by any of the following problems? 1. Little interest or pleasure in doing things: not at all 2. Feeling down, depressed, or hopeless: not at all 3. Trouble falling or staying asleep, or sleeping too much: not at all 4. Feeling tired or having little energy: not at all 5. Poor appetite or overeating: not at all 6. Feeling bad about yourself - or that you are a failure or have let yourself or your family down: not at all 7. Trouble concentrating on things, such as reading the newspaper or watching television: not at all 8. Moving or speaking so slowly that other people could have noticed. Or the opposite - being so fidgety or restless that you have been moving around a lot more than usual: not at all 9. Thoughts that you would be better off or of hurting yourself in some way: not at all Total score: 0 Depression Screening Interpretation: Negative Depression Screening Done: Yes 83787 - PHQ-9 Billing: Yes Source: Developed by Drs. Kd Jarrett, Maude Colorado, Leo Baugh and colleagues, with an educational vandana from [employer]. Thrive Questionnaire Date Thrive assessed: 07/25/24 I am a: Patient What is your living situation today?: I have a steady place to live Within the past 12 months, did the food you bought not last and you didn't have the money to get more?: Never true Within the past 12 months, did you worry whether your food would run out before you got money to buy more?: Never true Do you have trouble paying for medicines?: No Do you have trouble getting transportation to medical appointments?: No Do you have trouble paying your heating and electricity bill?: No Do you have trouble taking care of your child, family member or friend?: No Do you have trouble with day-to-day activities such as bathing, preparing meals, shopping, managing finances, etc.?: No Are you currently unemployed and looking for a job?: Yes Are you interested in more education?: No Please select the resources that you would like help with: None Currently or been in a relationship where the following occur: No concerns reported THRIVE Score: 0 PANFILO-7 AMB Questionnaire PANFILO-7 Date PANFILO - 7 assessed: 08/14/23 Source: Developed by Drs. Kd Jarrett, Maude Colorado, Leo Baugh and colleagues, with an educational vandana from [employer]. Review of Systems Const Denies chills, Denies fatigue, Denies fever(s), Denies headache(s) and Denies weakness ENT Denies dizziness and Denies headache(s) Card Denies dyspnea Resp Denies cough, Denies dyspnea, Denies wheezing and Denies other (shortness of breath) Musc Denies numbness and Denies tingling Neuro Denies dizziness, Denies headache(s), Denies numbness, Denies tingling and Denies weakness Psych Denies anxiety and Denies depression Endo Denies fatigue Aller/Immun Denies wheezing Physical exam (Primary Care) Vital Signs: Last Vital Signs Temp 97.8 F 12/22/24 11:44 Pulse 87 12/22/24 11:44 Resp 16 12/22/24 11:44 BP 132/63 12/22/24 11:44 Pulse Ox 93 12/22/24 11:44 Oxygen Delivery Method Room Air 12/22/24 11:44 BMI result Body Mass Index 75.3 Tobacco/Smoking Status: Tobacco use Status Tobacco use date assessed 08/14/23 12/22/24 11:39 Patient Tobacco Use Status Never used Tobacco 12/22/24 11:39 e-Cigarette/Vaping Use Never Used 12/22/24 11:39 PHQ-9: PHQ-9 Score PHQ-9: Total score 0 07/31/25 11:47 Depression Screening Interpretation: Negative Thrive Assessment: Date of Thrive Assessment Date Thrive assessed 07/25/24 12/22/24 11:39 Currently or been in a relationship where the following occur: No concerns reported Const General: well developed; No acute distress Nutritional Appearance: well nourished Orientation/consciousness: patient oriented x3 HENMT Head: Yes normocephalic and Yes atraumatic Eyes General: appearance normal, both eyes and all related structures Pupils: Equal, round and reactive pupils present EOM: EOMs intact bilaterally Resp Effort & Inspection: normal respiratory effort Auscultation: clear to auscultation bilaterally Cardio Rate: regular rate Rhythm: regular rhythm Heart sounds: S1 normal heart sound present, S2 normal heart sound present, no gallops, no murmurs and no rubs Neuro General: patient oriented x3 and gait normal Cranial nerves: Yes Equal, round and reactive pupils present Psych Affect: normal affect Coding Level of Care Code Est Pt Level 4 (26703) Diagnoses High blood pressure I10 Morbid obesity E66.01 Sleep apnea G47.30 Asthma J45.909 Allergies T78.40XA Hypogonadism in male E29.1 Additional Codes PHQ-9 - 91579 - PHQ-9 Billing: Yes ([id number]) Assessment & Plan Assessment & Plan (1) High blood pressure: Code(s): I10 - Essential (primary) hypertension Category: Medical Plan: Blood pressure is controlled. Goal is less than 140/90 Continue current medications (2) Morbid obesity: Code(s): E66.01 - Morbid (severe) obesity due to excess calories Category: Medical (3) Sleep apnea: Code(s): G47.30 - Sleep apnea, unspecified Category: Medical Plan: Followed by sleep medicine He is using BiPAP machine as recommended and tolerating this better now Some improvements on fatigue (4) Asthma: Code(s): J45.909 - Unspecified asthma, uncomplicated Category: Medical Plan: Well controlled with albuterol and Pulmicort Also taking medications for allergies which are a trigger. -see below (5) Allergies: Code(s): T78.40XA - Allergy, unspecified, initial encounter Category: Medical Plan: Now followed by immunology. He is taking Cristiana and also getting allergy shots at his fascia was office. Controlled (6) Hypogonadism in male: Code(s): E29.1 - Testicular hypofunction Category: Medical Plan: Had referred him to endocrinology in [place]. However patient would like to be seen at [facility] New referral today Gave patient a bone number Follow-up with [facility] endocrinology Plan He will follow-up in 3-4 months for review of hypertension. He can also schedule his annual exam next year. Medications: New budesonide 180 mcg/actuation (Pulmicort Flexhaler) 1 inh inhalation BID 1 ea 4RF 30 days
[2024-12-22 11:44] VITALS: BP 132/63; PULSE 87; RESP 16; TEMP 36.6; O2SAT 93; BMI 75.3
--- OUTSIDE RECORDS SUMMARY | 2024-12-22 12:11 | XMS_ITS | Encounter Summary ---
Author Organization [facility] Address [address] [place] [address] Care Team Providers Care [employer]ressed [employer] Worker Name Role Phone Valerio Thompson MD Primary Care Provider Unavailable Reason for Visit * Reason Comments Medication Refill Encounter Details Date Type Department Care Team (Late st Contact Info) Description 12/12/2022 Refill [facility] Department of Internal Medicine [address] [place] [phone] Valerio Thompson MD Benign essential hypertension; Anxiety; [...] Palpitations documented in this encounter Care Teams Comp[employer] Worker Relationship Specialty Start Date End Date Valerio Thompson MD PCP - General 02/10/23 documented as of this encounter
--- OUTSIDE RECORDS SUMMARY | 2024-12-22 12:11 | XMS_ITS ---
Author Name [facility] Organization Unknown Encounters Encounter Type Encounter Reason Primary Diagnosis Location Date Ambulatory Viral infection, unspecified [facility]is[facility] 09/23/2022 Care Team Organization Name Specialty Phone Email Start Date End Da te [facility] [employer] Kasia Aldana Primary Care 09/23/2022 [facility] KALPANA ALDANA Primary Care 08/13/2022 08/13/2022
--- OUTSIDE RECORDS SUMMARY | 2024-12-22 12:11 | XMS_ITS | Continuity of Care Document ---
Author Organization [facility] [address] [place] [address] Phone [phone] Care Team Providers Care Incident Manager Name Role Phone Julien Velázquez MD Care Team Information Supervisor Bonding [phone] Problems Active Problems Provider Date Testicular hypofunction Nick Chávez M.D. Onset: 11/06/2023 Asthma Nick Chávez M.D. Onset: 0 11/06/2023 Essential hypertension Nick Chávez M.D. O nset: 11/06/2023 Sleep apnea Nick Chávez M.D. Onset: 0 11/06/2023 Social History Type Date Description Comments Sex Male Sex Unknown Tobacco Use Start: Unknown Never Smoked Cigarettes ETOH Use Occasionally consumes alcoho l Allergies and adverse reactions Active Allergies Criticality Reaction Severity Comments Date Penicillin Unable to assess criticality 11/06/2023 Medications Active Medications SIG Qnty Indications Ordering Provider Date Escitalopram [id number] Tablets Take 1 Tablet By Mouth Once Daily Julien Velázquez MD Jxcdxqqgojwhhtlnwlj01f g Tablets Take 1 Tablet By Mouth Once Daily Julien Velázquez MD Metoprolol Succinate IP871ua Tablets ER 24HR Take 1 Tablet By Mouth In The Morning And Take 1/2 tablet (50MG) In The pm Julien Velázquez MD Sildenafil Guxskjy711dr Tablets Take 1 Tablet By Mouth Once Daily as Needed For Sexual Activity Take 30 Minutes Unknown Albuterol Sulfate QTF979(90Base) mcg/Act Aerosol inhale 2 Puffs By Mouth every 4 To 6 hours as Needed Shortness Of Breath Or For Julien Velázquez MD Sktlydsevb94oe Capsules DR take 1 capsule (40 mg) [...]
== END 2024-12-22 12:02 | disposition home or self-care (01) ==
LOC: HO.HMCFM 11:23
PROVIDERS: PCP Family Medicine; Visit Provider Family Medicine
DX: I10 Essential (primary) hypertension (principal); E66.01 Morbid (severe) obesity due to excess calories; Z68.45 Body mass index [BMI] 70 or greater, adult; G47.30 Sleep apnea, unspecified; J45.909 Unspecified asthma, uncomplicated; T78.40XA Allergy, unspecified, initial encounter; E29.1 Testicular hypofunction

== ENCOUNTER → 2024-12-22 11:22 | Outpatient (BNVA) | payer OTHER, SELFPAY | PROVIDERS: PCP Family Medicine; Visit Provider Family Medicine | DX: I10 Essential (primary) hypertension (principal); E66.01 Morbid (severe) obesity due to excess calories; Z68.45 Body mass index [BMI] 70 or greater, adult; G47.30 Sleep apnea, unspecified; J45.909 Unspecified asthma, uncomplicated; T78.40XA Allergy, unspecified, initial encounter; E29.1 Testicular hypofunction; Z13.31 Encounter for screening for depression | CPT/HCPCS: 96127; 99212 ==